=== PATIENT | male | born 1990 | race Caucasian/White ===

== ENCOUNTER 2018-05-21 13:26 | Inpatient (IN) | payer MEDICAID ==
[~2018-05-21] VITALS: Ht 182.9 cm; Wt 97.5 kg
[2018-05-21] MEDS ORDERED: HALOPERIDOL LACTATE 5 MG/ML VIAL IM ONE (14:00)
[2018-05-21] MEDS ORDERED: LORazepam 2 MG/ML VIAL IM ONE (14:00)
[2018-05-21] MEDS ORDERED: DiphenhydrAMINE HCL 50 MG/ML VIAL IM ONE (14:00)
[2018-05-21 15:54] LABS: BASOPHILS % (AUTO) 0.6 % (0.0-2.0); EOSINOPHILS % (AUTO) 0.4 % (1.0-6.0); HEMATOCRIT 44.6 % (41-53); HEMOGLOBIN 15.7 g/dL (13.5-17.5); LYMPHOCYTES # (AUTO) 2.4 K/uL (1.0-4.8); LYMPHOCYTES % (AUTO) 17.6 % (22.0-44.0); MEAN CORPUSCULAR HEMOGLOBIN 31.6 pg (26.0-34.0); MEAN CORPUSCULAR HGB CONC 35.1 G/dL (31.0-37.0); MEAN CORPUSCULAR VOLUME 90 fL (80-100); MONOCYTES # (AUTO) 0.7 K/uL (0.1-1.0); MONOCYTES % (AUTO) 4.9 % (2.0-9.0); NEUTROPHILS # (AUTO) 10.2 K/uL (1.8-7.7); NEUTROPHILS % (AUTO) 76.5 % (40.0-70.0); PLATELET COUNT (AUTO) 313 K/uL (150-450); RED BLOOD CELL COUNT(AUTO) 4.96 MIL/uL (4.50-5.90); RED CELL DISTRIBUTION WIDTH 13.4 % (11.5-14.5)
[2018-05-21 16:05] LABS: ANION GAP 13 mmol/L (8-16); CALCIUM, TOTAL 8.8 mg/dL (8.8-10.5); CARBON DIOXIDE 24 mmol/L (22-29); CHLORIDE 106 mmol/L (98-107); CREATININE 0.89 mg/dL (0.60-1.30); GLOMERULAR FILTR. RATE CALC > 60 mL/min (>60); GLUCOSE,RANDOM 75 mg/dL (70-110); POTASSIUM 3.6 mmol/L (3.5-5.1); SODIUM SERUM 143 mmol/L (136-145); UREA NITROGEN, BLOOD 11 mg/dL (7-18)
[2018-05-21 16:29] LABS: ALANINE AMINOTRANSFERASE 24 U/L (12-78); ALBUMIN 3.8 g/dL (3.4-5.0); ALKALINE PHOSPHATASE 71 U/L (46-116); ASPARTATE AMINOTRANSFERASE 18 U/L (15-37); BILIRUBIN,TOTAL 0.4 mg/dL (0.1-1.0); CREATINE KINASE, TOTAL ONLY 248 U/L (39-308); TOTAL PROTEIN, SERUM 6.9 g/dL (6.4-8.2)
[2018-05-21] MEDS ORDERED: OLANZapine 5 MG TABLET PO ONE (16:30)
[2018-05-21] MEDS ORDERED: ACETAMINOPHEN 325 MG TABLET PO PRN ×2 (16:30→18:30)
[2018-05-21] MEDS ORDERED: IBUPROFEN 400 MG TABLET PO PRN ×2 (16:30→18:30)
[2018-05-21 18:00] VITALS: BP 115/75
[2018-05-21 18:17] VITALS: BP 115/75
[2018-05-21] MEDS ORDERED: MAG HYDROX/AL HYDROX/SIMETH ES 30 ML SUSPENSION UDCUP PO PRN (18:30)
[2018-05-21] MEDS ORDERED: ONDANSETRON HCL 4 MG TABLET PO PRN (18:30)
[2018-05-21] MEDS ORDERED: PETROLATUM,WHITE 71 GM JELLY TP PRN (18:30)
[2018-05-21] MEDS ORDERED: DOCUSATE SODIUM 100 MG CAPSULE PO PRN (18:30)
[2018-05-21] MEDS ORDERED: GuaiFENesin/D-METHORPHAN [SUGAR-FREE] 200-20MG/10 ML SYRUP UDCUP PO PRN (18:30)
[2018-05-21] MEDS ORDERED: MAGNESIUM HYDROXIDE SUSPENSION 30 ML UDCUP PO PRN (18:30)
[2018-05-21] MEDS ORDERED: CloNIDine HCL 0.1 MG TABLET PO PRN (18:30)
[2018-05-21] MEDS ORDERED: ALBUTEROL SULFATE HFA 90 MCG/PUFF 8 GM INHALER IH PRN (18:30)
[2018-05-21] MEDS ORDERED: LOPERAMIDE HCL 2 MG CAPSULE PO PRN (18:30)
[2018-05-22] VITALS (7 sets, daily range): BP systolic 105–125; BP diastolic 65–77
[2018-05-22 08:52] LABS: BASOPHILS % (AUTO) 0.9 % (0.0-2.0); EOSINOPHILS % (AUTO) 1.6 % (1.0-6.0); HEMATOCRIT 48.2 % (41-53); HEMOGLOBIN 16.9 g/dL (13.5-17.5); LYMPHOCYTES # (AUTO) 1.7 K/uL (1.0-4.8); MEAN CORPUSCULAR HEMOGLOBIN 32.2 pg (26.0-34.0); MEAN CORPUSCULAR VOLUME 92 fL (80-100); MONOCYTES # (AUTO) 0.5 K/uL (0.1-1.0); MONOCYTES % (AUTO) 5.5 % (2.0-9.0); NEUTROPHILS # (AUTO) 6.5 K/uL (1.8-7.7); PLATELET COUNT (AUTO) 304 K/uL (150-450); RED BLOOD CELL COUNT(AUTO) 5.25 MIL/uL (4.50-5.90)
[2018-05-22] MEDS: OLANZapine 5 MG TABLET PO SCH ×2 (08:57→16:31)
[2018-05-22] MEDS: BENZTROPINE MESYLATE 0.5 MG TABLET PO SCH ×2 (08:57→16:30)
[2018-05-22 09:26] LABS: HEMOGLOBIN A1C 4.8 % (4.5-6.2)
[2018-05-22 09:42] LABS: ALANINE AMINOTRANSFERASE 22 U/L (12-78); ALBUMIN 3.6 g/dL (3.4-5.0); ALKALINE PHOSPHATASE 66 U/L (46-116); ANION GAP 10 mmol/L (8-16); ASPARTATE AMINOTRANSFERASE 27 U/L (15-37); BILIRUBIN,TOTAL 0.7 mg/dL (0.1-1.0); CALCIUM, TOTAL 9.1 mg/dL (8.8-10.5); CARBON DIOXIDE 26 mmol/L (22-29); CHLORIDE 106 mmol/L (98-107); CHOL/HDL RATIO 1.7 (4.2-7.3); CHOLESTEROL 100 mg/dL (131-200); CREATININE 0.81 mg/dL (0.60-1.30); GLOMERULAR FILTR. RATE CALC > 60 mL/min (>60); GLUCOSE,RANDOM 108 mg/dL (70-110); HDL CHOLESTEROL 58 mg/dL (40-60); LDL CHOL (CALC.) 29 mg/dL (0-130); POTASSIUM 4.2 mmol/L (3.5-5.1); SODIUM SERUM 142 mmol/L (136-145); THYROID STIMULATING HORMONE 0.85 uIU/mL (0.36-3.74); TRIGLYCERIDES 65 mg/dL (15-150); UREA NITROGEN, BLOOD 18 mg/dL (7-18)
[2018-05-22] MEDS: LORazepam 2 MG TABLET PO PRN (16:31)
[2018-05-23 04:12] VITALS: BP 123/80
[2018-05-23] MEDS: LORazepam 2 MG TABLET PO PRN ×4 (04:29→18:58)
[2018-05-23] MEDS: OLANZapine 5 MG RAPDIS TABLET PO PRN ×3 (04:29→14:47)
[2018-05-23 08:00] VITALS: BP 115/65
[2018-05-23 08:11] VITALS: BP 115/65
[2018-05-23] MEDS: OLANZapine 5 MG TABLET PO SCH (08:31)
[2018-05-23] MEDS: BENZTROPINE MESYLATE 0.5 MG TABLET PO SCH ×2 (08:32→16:31)
[2018-05-23 09:15] LABS: ALANINE AMINOTRANSFERASE 24 U/L (12-78); ALBUMIN 3.6 g/dL (3.4-5.0); ALKALINE PHOSPHATASE 68 U/L (46-116); ANION GAP 5 mmol/L (8-16); ASPARTATE AMINOTRANSFERASE 20 U/L (15-37); BILIRUBIN,TOTAL 0.4 mg/dL (0.1-1.0); CALCIUM, TOTAL 8.9 mg/dL (8.8-10.5); CARBON DIOXIDE 32 mmol/L (22-29); CHLORIDE 103 mmol/L (98-107); CHOLESTEROL 106 mg/dL (131-200); CREATININE 0.78 mg/dL (0.60-1.30); GLOMERULAR FILTR. RATE CALC > 60 mL/min (>60); GLUCOSE,RANDOM 92 mg/dL (70-110); HDL CHOLESTEROL 54 mg/dL (40-60); LDL CHOL (CALC.) 38 mg/dL (0-130); POTASSIUM 4.7 mmol/L (3.5-5.1); SODIUM SERUM 140 mmol/L (136-145); THYROID STIMULATING HORMONE 1.09 uIU/mL (0.36-3.74); TOTAL PROTEIN, SERUM 6.6 g/dL (6.4-8.2); TRIGLYCERIDES 72 mg/dL (15-150); UREA NITROGEN, BLOOD 15 mg/dL (7-18)
[2018-05-23] MEDS ORDERED: DiphenhydrAMINE HCL 50 MG/ML VIAL IM ONE (11:00)
[2018-05-23] MEDS ORDERED: LORazepam 2 MG/ML VIAL IM ONE (11:00)
[2018-05-23] MEDS ORDERED: HALOPERIDOL LACTATE 5 MG/ML VIAL IM ONE (11:00)
[2018-05-23] MEDS ORDERED: LORazepam 2 MG/ML VIAL ONE (11:05)
[2018-05-23] MEDS ORDERED: HALOPERIDOL LACTATE 5 MG/ML VIAL ONE (11:05)
[2018-05-23] MEDS ORDERED: DiphenhydrAMINE HCL 50 MG/ML VIAL ONE (11:05)
[2018-05-23 16:27] VITALS: BP 119/74
[2018-05-23] MEDS: OLANZapine 10 MG TABLET PO SCH (16:31)
[2018-05-24 06:40] VITALS: BP 109/63
[2018-05-24] MEDS: BENZTROPINE MESYLATE 0.5 MG TABLET PO SCH (08:25)
[2018-05-24] MEDS: OLANZapine 10 MG TABLET PO SCH (08:25)
[2018-05-24 08:29] VITALS: BP 116/63
[2018-05-24 09:47] VITALS: BP 115/68
[2018-05-24] MEDS: LORazepam 2 MG TABLET PO PRN ×2 (10:39→16:50)
[2018-05-24 16:00] VITALS: BP 137/78
[2018-05-24 16:09] VITALS: BP 137/78
[2018-05-24] MEDS: BENZTROPINE MESYLATE 1 MG TABLET PO SCH (16:50)
[2018-05-24] MEDS: OLANZapine 5 MG RAPDIS TABLET PO PRN (16:50)
[2018-05-24] MEDS: HALOPERIDOL 10 MG TABLET PO SCH (16:50)
[2018-05-24] MEDS: ZOLPIDEM TARTRATE 10 MG TABLET PO PRN (20:25)
[2018-05-25] MEDS: LORazepam 2 MG TABLET PO PRN ×3 (02:39→16:34)
[2018-05-25] MEDS: OLANZapine 5 MG RAPDIS TABLET PO PRN ×3 (02:39→16:35)
[2018-05-25 02:44] VITALS: BP 134/88
[2018-05-25] MEDS: HALOPERIDOL 10 MG TABLET PO SCH ×2 (08:03→16:34)
[2018-05-25] MEDS: BENZTROPINE MESYLATE 1 MG TABLET PO SCH ×2 (08:03→16:34)
[2018-05-25 08:46] VITALS: BP 121/74
[2018-05-25] MEDS: HALOPERIDOL DECANOATE 100 MG/ML VIAL IM SCH (08:56)
[2018-05-25 12:47] VITALS: BP 130/82
[2018-05-25 16:00] VITALS: BP 118/72
[2018-05-25] MEDS: ZOLPIDEM TARTRATE 10 MG TABLET PO PRN (20:17)
[2018-05-26 00:20] VITALS: BP 126/83
[2018-05-26] MEDS: OLANZapine 5 MG RAPDIS TABLET PO PRN ×3 (00:27→13:58)
[2018-05-26] MEDS: LORazepam 2 MG TABLET PO PRN ×4 (00:27→18:18)
[2018-05-26 08:05] VITALS: BP 122/78
[2018-05-26] MEDS: HALOPERIDOL 10 MG TABLET PO SCH ×2 (08:16→16:56)
[2018-05-26] MEDS: BENZTROPINE MESYLATE 1 MG TABLET PO SCH ×2 (08:17→16:56)
[2018-05-26 09:23] LABS: AMPHET/METH SCREEN,URINE NEGATIVE (NEGATIVE); BARBITURATE SCREEN, URINE NEGATIVE (NEGATIVE); BENZODIAZEPINES SCREEN,URINE NEGATIVE (NEGATIVE); CANNABINOID SCREEN,URINE POSITIVE (NEGATIVE); COCAINE SCREEN,URINE NEGATIVE (NEGATIVE); METHADONE SCREEN, URINE NEGATIVE (NEGATIVE); OPIATE SCREEN,URINE NEGATIVE (NEGATIVE)
[2018-05-26 09:25] LABS: PHENCYCLIDINE SCREEN,URINE NEGATIVE (NEGATIVE)
[2018-05-26 09:34] LABS: APPEARANCE,URINE CLEAR (CLEAR); BILIRUBIN,URINE NEGATIVE (NEGATIVE); GLUCOSE, URINE (UA) NEGATIVE (NEGATIVE); KETONES,URINE NEGATIVE (NEGATIVE); LEUKOCYTE ESTERASE ,URINE NEGATIVE (NEGATIVE); NITRATE,URINE NEGATIVE (NEGATIVE); OCCULT BLOOD,URINE NEGATIVE (NEGATIVE); PROTEIN,URINE NEGATIVE (NEGATIVE); UROBILINOGEN,URINE 0.2 mg/dL (<=1.0)
[2018-05-26 12:04] VITALS: BP 122/82
[2018-05-26 16:00] VITALS: BP 120/77
[2018-05-27 02:42] VITALS: BP 120/90
[2018-05-27] MEDS: OLANZapine 5 MG RAPDIS TABLET PO PRN ×3 (02:46→13:21)
[2018-05-27] MEDS: LORazepam 2 MG TABLET PO PRN ×4 (02:46→17:21)
[2018-05-27 08:00] VITALS: BP 137/74
[2018-05-27 08:07] VITALS: BP 134/74
[2018-05-27] MEDS: HALOPERIDOL 10 MG TABLET PO SCH ×2 (08:18→16:12)
[2018-05-27] MEDS: BENZTROPINE MESYLATE 1 MG TABLET PO SCH ×2 (08:18→16:12)
[2018-05-27 16:00] VITALS: BP 120/82
[2018-05-28 01:56] VITALS: BP 125/79
[2018-05-28 01:59] VITALS: BP 125/79
[2018-05-28] MEDS: LORazepam 2 MG TABLET PO PRN ×3 (05:49→16:16)
[2018-05-28] MEDS: HALOPERIDOL 10 MG TABLET PO SCH ×2 (08:08→16:15)
[2018-05-28] MEDS: BENZTROPINE MESYLATE 1 MG TABLET PO SCH ×2 (08:08→16:16)
[2018-05-28 08:24] VITALS: BP 129/82
[2018-05-28 08:30] VITALS: BP 129/82
[2018-05-28] MEDS: OLANZapine 5 MG RAPDIS TABLET PO PRN (09:58)
[2018-05-28 16:00] VITALS: BP 113/68
[2018-05-29 01:00] VITALS: BP 126/71
[2018-05-29] MEDS: LORazepam 2 MG TABLET PO PRN ×3 (01:10→16:06)
[2018-05-29] MEDS: ZOLPIDEM TARTRATE 10 MG TABLET PO PRN (01:10)
[2018-05-29 01:24] VITALS: BP 126/71
[2018-05-29 08:07] VITALS: BP 117/78
[2018-05-29] MEDS: BENZTROPINE MESYLATE 1 MG TABLET PO SCH ×2 (08:18→16:06)
[2018-05-29] MEDS: HALOPERIDOL 10 MG TABLET PO SCH ×2 (08:18→16:06)
[2018-05-29] MEDS: OLANZapine 5 MG RAPDIS TABLET PO PRN ×2 (10:16→16:06)
[2018-05-29] MEDS ORDERED: DiphenhydrAMINE HCL 50 MG/ML VIAL ONE (10:27)
[2018-05-29] MEDS ORDERED: DiphenhydrAMINE HCL 50 MG/ML VIAL IM ONE ×2 (10:30→16:15)
[2018-05-29] MEDS ORDERED: HALOPERIDOL LACTATE 5 MG/ML VIAL IM ONE ×2 (10:30→16:15)
[2018-05-29 11:00] VITALS: BP 134/97
[2018-05-29] MEDS: NICOTINE 14 MG/24 HOUR PATCH TD SCH (11:05)
[2018-05-29 16:00] VITALS: BP 132/87
[2018-05-30 02:08] VITALS: BP 128/86
[2018-05-30 02:47] VITALS: BP 128/86
[2018-05-30 08:30] VITALS: BP 124/78
[2018-05-30] MEDS: DIVALPROEX SODIUM 500 MG ER TABLET PO SCH ×2 (08:44→16:42)
[2018-05-30] MEDS: HALOPERIDOL 10 MG TABLET PO SCH ×2 (08:44→16:42)
[2018-05-30] MEDS: BENZTROPINE MESYLATE 1 MG TABLET PO SCH ×2 (08:44→16:42)
[2018-05-30] MEDS: LORazepam 2 MG TABLET PO PRN ×3 (08:44→20:42)
[2018-05-30] MEDS: NICOTINE 14 MG/24 HOUR PATCH TD SCH (08:45)
[2018-05-30 09:13] VITALS: BP 124/78
[2018-05-30] MEDS: OLANZapine 5 MG RAPDIS TABLET PO PRN ×2 (14:23→20:42)
[2018-05-30 16:00] VITALS: BP 110/63
[2018-05-30] MEDS: ZOLPIDEM TARTRATE 10 MG TABLET PO PRN (20:41)
[2018-05-31 00:33] VITALS: BP 114/66
[2018-05-31 00:35] VITALS: BP 114/66
[2018-05-31 08:03] VITALS: BP 120/78
[2018-05-31 08:17] VITALS: BP 120/78
[2018-05-31] MEDS: BENZTROPINE MESYLATE 1 MG TABLET PO SCH ×2 (09:05→17:01)
[2018-05-31] MEDS: OLANZapine 5 MG RAPDIS TABLET PO PRN ×2 (09:05→13:12)
[2018-05-31] MEDS: NICOTINE 14 MG/24 HOUR PATCH TD SCH (09:05)
[2018-05-31] MEDS: DIVALPROEX SODIUM 500 MG ER TABLET PO SCH ×2 (09:05→17:01)
[2018-05-31] MEDS: HALOPERIDOL 10 MG TABLET PO SCH ×2 (09:05→17:00)
[2018-05-31] MEDS: LORazepam 2 MG TABLET PO PRN ×3 (09:05→17:18)
[2018-05-31 16:55] VITALS: BP 104/67
[2018-05-31 16:57] VITALS: BP 104/67
[2018-06-01] VITALS (7 sets, daily range): BP systolic 117–125; BP diastolic 67–74
[2018-06-01] MEDS: HALOPERIDOL 10 MG TABLET PO SCH ×2 (08:38→16:47)
[2018-06-01] MEDS: BENZTROPINE MESYLATE 1 MG TABLET PO SCH ×2 (08:38→16:47)
[2018-06-01] MEDS: DIVALPROEX SODIUM 500 MG ER TABLET PO SCH ×2 (08:38→16:47)
[2018-06-01] MEDS: NICOTINE 14 MG/24 HOUR PATCH TD SCH (08:39)
[2018-06-01] MEDS: LORazepam 2 MG TABLET PO PRN ×2 (08:39→16:47)
[2018-06-01] MEDS: OLANZapine 5 MG RAPDIS TABLET PO PRN ×2 (08:39→16:47)
[2018-06-01 09:01] LABS: BASOPHILS % (AUTO) 1.2 % (0.0-2.0); EOSINOPHILS % (AUTO) 1.8 % (1.0-6.0); HEMATOCRIT 46.9 % (41-53); HEMOGLOBIN 16.4 g/dL (13.5-17.5); LYMPHOCYTES # (AUTO) 2.5 K/uL (1.0-4.8); LYMPHOCYTES % (AUTO) 32.5 % (22.0-44.0); MEAN CORPUSCULAR HEMOGLOBIN 31.4 pg (26.0-34.0); MEAN CORPUSCULAR HGB CONC 34.9 G/dL (31.0-37.0); MEAN CORPUSCULAR VOLUME 90 fL (80-100); MONOCYTES # (AUTO) 0.3 K/uL (0.1-1.0); MONOCYTES % (AUTO) 4.5 % (2.0-9.0); NEUTROPHILS # (AUTO) 4.5 K/uL (1.8-7.7); PLATELET COUNT (AUTO) 337 K/uL (150-450); RED CELL DISTRIBUTION WIDTH 13.5 % (11.5-14.5)
[2018-06-01 09:19] LABS: ALANINE AMINOTRANSFERASE 24 U/L (12-78); ALBUMIN 3.6 g/dL (3.4-5.0); ALKALINE PHOSPHATASE 66 U/L (46-116); ANION GAP 8 mmol/L (8-16); ASPARTATE AMINOTRANSFERASE 14 U/L (15-37); BILIRUBIN,TOTAL 0.3 mg/dL (0.1-1.0); CARBON DIOXIDE 28 mmol/L (22-29); CHLORIDE 103 mmol/L (98-107); GLOMERULAR FILTR. RATE CALC > 60 mL/min (>60); GLUCOSE,RANDOM 118 mg/dL (70-110); POTASSIUM 3.8 mmol/L (3.5-5.1); SODIUM SERUM 139 mmol/L (136-145); TOTAL PROTEIN, SERUM 7.1 g/dL (6.4-8.2); UREA NITROGEN, BLOOD 16 mg/dL (7-18); VALPROIC ACID 41 mcg/mL (50-100)
[2018-06-01] MEDS ORDERED: LORazepam 2 MG/ML VIAL IM ONE (11:15)
[2018-06-01] MEDS ORDERED: DiphenhydrAMINE HCL 50 MG/ML VIAL IM ONE (11:15)
[2018-06-01] MEDS ORDERED: HALOPERIDOL LACTATE 5 MG/ML VIAL IM ONE (11:15)
[2018-06-02 01:22] VITALS: BP 124/72
[2018-06-02 01:23] VITALS: BP 124/72
[2018-06-02] MEDS: HALOPERIDOL 10 MG TABLET PO SCH ×2 (08:09→16:22)
[2018-06-02] MEDS: DIVALPROEX SODIUM 500 MG ER TABLET PO SCH ×2 (08:09→16:22)
[2018-06-02] MEDS: BENZTROPINE MESYLATE 1 MG TABLET PO SCH ×2 (08:09→16:22)
[2018-06-02] MEDS: LORazepam 2 MG TABLET PO PRN ×3 (08:12→21:08)
[2018-06-02] MEDS: NICOTINE 14 MG/24 HOUR PATCH TD SCH (08:12)
[2018-06-02] MEDS: OLANZapine 5 MG RAPDIS TABLET PO PRN (08:13)
[2018-06-02 08:30] VITALS: BP 114/66
[2018-06-02 09:26] VITALS: BP 116/68
[2018-06-02] MEDS ORDERED: DiphenhydrAMINE HCL 50 MG/ML VIAL ONE (13:33)
[2018-06-02] MEDS ORDERED: LORazepam 2 MG/ML VIAL ONE (13:33)
[2018-06-02] MEDS ORDERED: HALOPERIDOL LACTATE 5 MG/ML VIAL ONE (13:33)
[2018-06-02] MEDS ORDERED: DiphenhydrAMINE HCL 50 MG/ML VIAL IM ONE (14:15)
[2018-06-02] MEDS ORDERED: HALOPERIDOL LACTATE 5 MG/ML VIAL IM ONE (14:15)
[2018-06-02] MEDS ORDERED: LORazepam 2 MG/ML VIAL IM ONE (14:15)
[2018-06-02 16:00] VITALS: BP 136/72
[2018-06-03 03:57] VITALS: BP 124/76
[2018-06-03 08:09] VITALS: BP 127/75
[2018-06-03] MEDS: HALOPERIDOL 10 MG TABLET PO SCH ×2 (08:33→16:32)
[2018-06-03] MEDS: DIVALPROEX SODIUM 500 MG ER TABLET PO SCH ×2 (08:33→16:32)
[2018-06-03] MEDS: BENZTROPINE MESYLATE 1 MG TABLET PO SCH ×2 (08:33→16:32)
[2018-06-03] MEDS: LORazepam 2 MG TABLET PO PRN ×3 (08:34→20:15)
[2018-06-03] MEDS: OLANZapine 5 MG RAPDIS TABLET PO PRN ×3 (08:34→20:15)
[2018-06-03] MEDS: NICOTINE 14 MG/24 HOUR PATCH TD SCH (08:35)
[2018-06-03] MEDS ORDERED: DiphenhydrAMINE HCL 50 MG/ML VIAL ONE (14:19)
[2018-06-03] MEDS ORDERED: HALOPERIDOL LACTATE 5 MG/ML VIAL ONE (14:19)
[2018-06-03] MEDS ORDERED: LORazepam 2 MG/ML VIAL ONE (14:19)
[2018-06-03] MEDS ORDERED: HALOPERIDOL LACTATE 5 MG/ML VIAL IM ONE (14:45)
[2018-06-03] MEDS ORDERED: LORazepam 2 MG/ML VIAL IM ONE (14:45)
[2018-06-03] MEDS ORDERED: DiphenhydrAMINE HCL 50 MG/ML VIAL IM ONE (14:45)
[2018-06-03 16:21] VITALS: BP 127/82
[2018-06-03] MEDS: ZOLPIDEM TARTRATE 10 MG TABLET PO PRN (20:15)
[2018-06-04 05:20] VITALS: BP 121/72
[2018-06-04] MEDS: LORazepam 2 MG TABLET PO PRN ×3 (06:44→17:00)
[2018-06-04 08:05] VITALS: BP 116/76
[2018-06-04] MEDS: HALOPERIDOL 10 MG TABLET PO SCH ×2 (08:33→17:00)
[2018-06-04] MEDS: NICOTINE 14 MG/24 HOUR PATCH TD SCH (08:33)
[2018-06-04] MEDS: BENZTROPINE MESYLATE 1 MG TABLET PO SCH ×2 (08:33→17:00)
[2018-06-04] MEDS: OLANZapine 5 MG RAPDIS TABLET PO PRN ×3 (08:33→17:00)
[2018-06-04] MEDS: DIVALPROEX SODIUM 500 MG ER TABLET PO SCH ×2 (08:33→17:00)
[2018-06-04 16:00] VITALS: BP 116/73
[2018-06-05 03:20] VITALS: BP 112/65
[2018-06-05 08:05] VITALS: BP 122/78
[2018-06-05] MEDS: HALOPERIDOL 10 MG TABLET PO SCH ×2 (08:28→16:13)
[2018-06-05] MEDS: DIVALPROEX SODIUM 500 MG ER TABLET PO SCH ×2 (08:28→16:13)
[2018-06-05] MEDS: BENZTROPINE MESYLATE 1 MG TABLET PO SCH ×2 (08:28→16:13)
[2018-06-05] MEDS: NICOTINE 14 MG/24 HOUR PATCH TD SCH (09:00)
[2018-06-05] MEDS: OLANZapine 5 MG RAPDIS TABLET PO PRN ×2 (15:11→19:50)
[2018-06-05] MEDS: LORazepam 2 MG TABLET PO PRN ×2 (15:11→19:50)
[2018-06-05 16:04] VITALS: BP 118/90
[2018-06-06 02:18] VITALS: BP 109/77
[2018-06-06 08:04] VITALS: BP 117/68
[2018-06-06] MEDS: HALOPERIDOL 10 MG TABLET PO SCH ×2 (08:40→17:09)
[2018-06-06] MEDS: DIVALPROEX SODIUM 500 MG ER TABLET PO SCH ×2 (08:40→17:09)
[2018-06-06] MEDS: LORazepam 2 MG TABLET PO PRN ×3 (08:40→17:09)
[2018-06-06] MEDS: BENZTROPINE MESYLATE 1 MG TABLET PO SCH ×2 (08:40→17:09)
[2018-06-06] MEDS: OLANZapine 5 MG RAPDIS TABLET PO PRN ×3 (08:40→17:09)
[2018-06-06] MEDS: NICOTINE 14 MG/24 HOUR PATCH TD SCH (08:40)
[2018-06-06 16:22] VITALS: BP 112/72
[2018-06-07 02:12] VITALS: BP 110/62
[2018-06-07 08:00] VITALS: BP 122/64
[2018-06-07] MEDS: HALOPERIDOL 10 MG TABLET PO SCH ×2 (08:19→16:38)
[2018-06-07] MEDS: OLANZapine 5 MG RAPDIS TABLET PO PRN ×3 (08:19→16:38)
[2018-06-07] MEDS: NICOTINE 14 MG/24 HOUR PATCH TD SCH (08:19)
[2018-06-07] MEDS: DIVALPROEX SODIUM 500 MG ER TABLET PO SCH ×2 (08:19→16:38)
[2018-06-07] MEDS: LORazepam 2 MG TABLET PO PRN ×3 (08:19→16:38)
[2018-06-07] MEDS: BENZTROPINE MESYLATE 1 MG TABLET PO SCH ×2 (08:19→16:38)
[2018-06-07 16:00] VITALS: BP 113/82
[2018-06-08 05:48] VITALS: BP 115/78
[2018-06-08 08:14] VITALS: BP 113/56
[2018-06-08] MEDS: LORazepam 2 MG TABLET PO PRN ×3 (08:18→16:41)
[2018-06-08] MEDS: OLANZapine 5 MG RAPDIS TABLET PO PRN ×3 (08:18→16:41)
[2018-06-08] MEDS: BENZTROPINE MESYLATE 1 MG TABLET PO SCH ×2 (08:18→16:41)
[2018-06-08] MEDS: DIVALPROEX SODIUM 500 MG ER TABLET PO SCH ×2 (08:18→16:41)
[2018-06-08] MEDS: NICOTINE 14 MG/24 HOUR PATCH TD SCH (08:19)
[2018-06-08] MEDS: HALOPERIDOL 10 MG TABLET PO SCH ×2 (08:19→16:41)
[2018-06-08 17:06] VITALS: BP 132/70
[2018-06-09 02:40] VITALS: BP 127/82
[2018-06-09 08:05] VITALS: BP 117/67
[2018-06-09] MEDS: DIVALPROEX SODIUM 500 MG ER TABLET PO SCH ×2 (08:14→16:20)
[2018-06-09] MEDS: HALOPERIDOL 10 MG TABLET PO SCH ×2 (08:14→16:20)
[2018-06-09] MEDS: BENZTROPINE MESYLATE 1 MG TABLET PO SCH ×2 (08:14→16:20)
[2018-06-09] MEDS: NICOTINE 14 MG/24 HOUR PATCH TD SCH (08:15)
[2018-06-09] MEDS: LORazepam 2 MG TABLET PO PRN ×3 (08:15→16:20)
[2018-06-09] MEDS: OLANZapine 5 MG RAPDIS TABLET PO PRN ×3 (08:15→16:21)
[2018-06-09 16:00] VITALS: BP 130/79
[2018-06-10 04:51] VITALS: BP 121/81
[2018-06-10 08:06] VITALS: BP 110/66
[2018-06-10] MEDS: OLANZapine 5 MG RAPDIS TABLET PO PRN (09:12)
[2018-06-10] MEDS: NICOTINE 14 MG/24 HOUR PATCH TD SCH (09:13)
[2018-06-10] MEDS: BENZTROPINE MESYLATE 1 MG TABLET PO SCH ×2 (09:13→16:08)
[2018-06-10] MEDS: HALOPERIDOL 10 MG TABLET PO SCH ×2 (09:13→16:08)
[2018-06-10] MEDS: LORazepam 2 MG TABLET PO PRN ×2 (09:13→16:08)
[2018-06-10] MEDS: DIVALPROEX SODIUM 500 MG ER TABLET PO SCH ×2 (09:13→16:08)
[2018-06-10] MEDS ORDERED: TUBERCULIN, PURIFIED PROTEIN DERIVATIVE 5 TU/0.1 ML SYG ID ONE (15:30)
[2018-06-10 16:07] VITALS: BP 115/63
[2018-06-11] MEDS: LORazepam 2 MG TABLET PO PRN ×4 (01:25→16:44)
[2018-06-11] MEDS: ZOLPIDEM TARTRATE 10 MG TABLET PO PRN (01:25)
[2018-06-11 03:19] VITALS: BP 117/78
[2018-06-11 08:05] VITALS: BP 116/68
[2018-06-11] MEDS: DIVALPROEX SODIUM 500 MG ER TABLET PO SCH ×2 (08:27→16:44)
[2018-06-11] MEDS: NICOTINE 14 MG/24 HOUR PATCH TD SCH (08:27)
[2018-06-11] MEDS: HALOPERIDOL 10 MG TABLET PO SCH ×2 (08:27→16:44)
[2018-06-11] MEDS: OLANZapine 5 MG RAPDIS TABLET PO PRN ×3 (08:27→16:44)
[2018-06-11] MEDS: BENZTROPINE MESYLATE 1 MG TABLET PO SCH ×2 (08:27→16:44)
[2018-06-11 16:00] VITALS: BP 123/67
[2018-06-12 01:42] VITALS: BP 125/85
[2018-06-12] MEDS: ZOLPIDEM TARTRATE 10 MG TABLET PO PRN (03:32)
[2018-06-12 08:46] VITALS: BP 122/78
[2018-06-12] MEDS: HALOPERIDOL 10 MG TABLET PO SCH ×2 (08:51→17:06)
[2018-06-12] MEDS: NICOTINE 14 MG/24 HOUR PATCH TD SCH (08:52)
[2018-06-12] MEDS: LORazepam 2 MG TABLET PO PRN ×3 (08:52→17:06)
[2018-06-12] MEDS: OLANZapine 5 MG RAPDIS TABLET PO PRN ×2 (08:52→13:07)
[2018-06-12] MEDS: BENZTROPINE MESYLATE 1 MG TABLET PO SCH ×2 (08:52→17:06)
[2018-06-12] MEDS: DIVALPROEX SODIUM 500 MG ER TABLET PO SCH ×2 (08:52→17:06)
[2018-06-12 16:20] VITALS: BP 118/70
[2018-06-13 05:10] VITALS: BP 110/72
[2018-06-13 08:08] VITALS: BP 118/74
[2018-06-13] MEDS: HALOPERIDOL 10 MG TABLET PO SCH ×2 (08:51→16:07)
[2018-06-13] MEDS: DIVALPROEX SODIUM 500 MG ER TABLET PO SCH ×2 (08:51→16:07)
[2018-06-13] MEDS: LORazepam 2 MG TABLET PO PRN ×2 (08:52→14:24)
[2018-06-13] MEDS: BENZTROPINE MESYLATE 1 MG TABLET PO SCH ×2 (08:52→16:07)
[2018-06-13] MEDS: NICOTINE 14 MG/24 HOUR PATCH TD SCH (08:53)
[2018-06-13 16:00] VITALS: BP 121/80
[2018-06-13] MEDS: OLANZapine 5 MG RAPDIS TABLET PO PRN (19:52)
[2018-06-14 03:32] VITALS: BP 137/79
[2018-06-14] MEDS: LORazepam 2 MG TABLET PO PRN ×4 (04:28→17:03)
[2018-06-14] MEDS: OLANZapine 5 MG RAPDIS TABLET PO PRN ×2 (04:28→13:15)
[2018-06-14] MEDS: BENZTROPINE MESYLATE 1 MG TABLET PO SCH ×2 (08:50→17:03)
[2018-06-14] MEDS: DIVALPROEX SODIUM 500 MG ER TABLET PO SCH ×2 (08:50→17:03)
[2018-06-14] MEDS: HALOPERIDOL 10 MG TABLET PO SCH ×2 (08:50→17:03)
[2018-06-14] MEDS: NICOTINE 14 MG/24 HOUR PATCH TD SCH (08:51)
[2018-06-14 08:55] VITALS: BP 114/64
[2018-06-14 16:00] VITALS: BP 136/87
[2018-06-15 00:54] VITALS: BP 111/71
[2018-06-15 08:27] VITALS: BP 120/68
[2018-06-15] MEDS: NICOTINE 14 MG/24 HOUR PATCH TD SCH (09:00)
[2018-06-15] MEDS: HALOPERIDOL 10 MG TABLET PO SCH ×2 (09:56→16:46)
[2018-06-15] MEDS: DIVALPROEX SODIUM 500 MG ER TABLET PO SCH ×2 (09:56→16:46)
[2018-06-15] MEDS: BENZTROPINE MESYLATE 1 MG TABLET PO SCH ×2 (09:56→16:46)
[2018-06-15] MEDS: LORazepam 2 MG TABLET PO PRN ×2 (09:57→16:46)
[2018-06-15 17:31] VITALS: BP 123/75
[2018-06-16 05:26] VITALS: BP 128/72
[2018-06-16 08:09] VITALS: BP 116/68
[2018-06-16] MEDS: DIVALPROEX SODIUM 500 MG ER TABLET PO SCH ×2 (08:54→16:05)
[2018-06-16] MEDS: HALOPERIDOL 10 MG TABLET PO SCH ×2 (08:54→16:05)
[2018-06-16] MEDS: BENZTROPINE MESYLATE 1 MG TABLET PO SCH ×2 (08:54→16:05)
[2018-06-16] MEDS: NICOTINE 14 MG/24 HOUR PATCH TD SCH (08:55)
[2018-06-16] MEDS: LORazepam 2 MG TABLET PO PRN (08:55)
[2018-06-16] MEDS: OLANZapine 5 MG RAPDIS TABLET PO PRN ×2 (08:55→17:10)
[2018-06-16 16:00] VITALS: BP 124/70
[2018-06-17 01:00] VITALS: BP 128/78
[2018-06-17] MEDS: ZOLPIDEM TARTRATE 10 MG TABLET PO PRN ×2 (01:05→20:49)
[2018-06-17 08:09] VITALS: BP 113/63
[2018-06-17] MEDS: NICOTINE 14 MG/24 HOUR PATCH TD SCH (09:15)
[2018-06-17] MEDS: DIVALPROEX SODIUM 500 MG ER TABLET PO SCH ×2 (09:15→16:32)
[2018-06-17] MEDS: HALOPERIDOL 10 MG TABLET PO SCH ×2 (09:15→16:33)
[2018-06-17] MEDS: BENZTROPINE MESYLATE 1 MG TABLET PO SCH ×2 (09:15→16:32)
[2018-06-17] MEDS: OLANZapine 5 MG RAPDIS TABLET PO PRN ×2 (09:16→16:33)
[2018-06-17 16:08] VITALS: BP 121/84
[2018-06-18 03:17] VITALS: BP 114/74
[2018-06-18] MEDS: OLANZapine 5 MG RAPDIS TABLET PO PRN ×2 (06:01→15:29)
[2018-06-18 08:31] VITALS: BP 138/82
[2018-06-18] MEDS: DIVALPROEX SODIUM 500 MG ER TABLET PO SCH ×2 (08:51→17:03)
[2018-06-18] MEDS: HALOPERIDOL 10 MG TABLET PO SCH ×2 (08:51→17:03)
[2018-06-18] MEDS: NICOTINE 14 MG/24 HOUR PATCH TD SCH (08:52)
[2018-06-18] MEDS: BENZTROPINE MESYLATE 1 MG TABLET PO SCH ×2 (08:52→17:03)
[2018-06-18 16:13] VITALS: BP 121/70
[2018-06-18] MEDS: ZOLPIDEM TARTRATE 10 MG TABLET PO PRN (20:05)
[2018-06-19 05:54] VITALS: BP 122/79
[2018-06-19] MEDS: OLANZapine 5 MG RAPDIS TABLET PO PRN ×2 (07:07→16:56)
[2018-06-19 08:21] VITALS: BP 126/78
[2018-06-19] MEDS ORDERED: MULT-1239 PO (08:38)
[2018-06-19] MEDS ORDERED: HALO100V4 IM (08:38)
[2018-06-19] MEDS ORDERED: NICO-703 TD (08:38)
[2018-06-19] MEDS ORDERED: BENZ1TAB10 PO (08:38)
[2018-06-19] MEDS ORDERED: DIVA500T52 PO (08:38)
[2018-06-19] MEDS ORDERED: HALO10 PO (08:38)
[2018-06-19] MEDS: MULTIVITAMINS, THERAPEUTIC TABLET PO SCH (08:44)
[2018-06-19] MEDS: DIVALPROEX SODIUM 500 MG ER TABLET PO SCH ×2 (08:44→16:56)
[2018-06-19] MEDS: HALOPERIDOL 10 MG TABLET PO SCH ×2 (08:44→16:55)
[2018-06-19] MEDS: BENZTROPINE MESYLATE 1 MG TABLET PO SCH ×2 (08:44→16:56)
[2018-06-19] MEDS: NICOTINE 14 MG/24 HOUR PATCH TD SCH (08:45)
[2018-06-19 16:20] VITALS: BP 127/74
[2018-06-19] MEDS: ZOLPIDEM TARTRATE 10 MG TABLET PO PRN (20:50)
[2018-06-20 04:14] VITALS: BP 117/80
[2018-06-20 08:08] VITALS: BP 125/80
[2018-06-20] MEDS: MULTIVITAMINS, THERAPEUTIC TABLET PO SCH (08:35)
[2018-06-20] MEDS: HALOPERIDOL 10 MG TABLET PO SCH ×2 (08:35→17:02)
[2018-06-20] MEDS: BENZTROPINE MESYLATE 1 MG TABLET PO SCH ×2 (08:35→17:01)
[2018-06-20] MEDS: DIVALPROEX SODIUM 500 MG ER TABLET PO SCH ×2 (08:35→17:01)
[2018-06-20] MEDS: NICOTINE 14 MG/24 HOUR PATCH TD SCH (08:38)
[2018-06-20] MEDS: OLANZapine 5 MG RAPDIS TABLET PO PRN ×2 (08:40→17:03)
[2018-06-20 16:08] VITALS: BP 129/79
[2018-06-21 05:03] VITALS: BP 123/75
[2018-06-21 08:17] VITALS: BP 134/76
[2018-06-21] MEDS: MULTIVITAMINS, THERAPEUTIC TABLET PO SCH (08:47)
[2018-06-21] MEDS: HALOPERIDOL 10 MG TABLET PO SCH ×2 (08:47→16:44)
[2018-06-21] MEDS: BENZTROPINE MESYLATE 1 MG TABLET PO SCH ×2 (08:47→16:44)
[2018-06-21] MEDS: DIVALPROEX SODIUM 500 MG ER TABLET PO SCH ×2 (08:48→16:44)
[2018-06-21] MEDS: NICOTINE 14 MG/24 HOUR PATCH TD SCH (09:38)
[2018-06-21 16:27] VITALS: BP 116/73
[2018-06-21] MEDS: OLANZapine 5 MG RAPDIS TABLET PO PRN (16:44)
[2018-06-21] MEDS: ZOLPIDEM TARTRATE 10 MG TABLET PO PRN (20:25)
[2018-06-22 06:28] VITALS: BP 119/79
[2018-06-22 08:09] VITALS: BP 120/76
[2018-06-22] MEDS: OLANZapine 5 MG RAPDIS TABLET PO PRN ×2 (09:21→17:27)
[2018-06-22] MEDS: NICOTINE 14 MG/24 HOUR PATCH TD SCH (09:21)
[2018-06-22] MEDS: BENZTROPINE MESYLATE 1 MG TABLET PO SCH ×2 (09:21→17:27)
[2018-06-22] MEDS: DIVALPROEX SODIUM 500 MG ER TABLET PO SCH ×2 (09:21→17:27)
[2018-06-22] MEDS: MULTIVITAMINS, THERAPEUTIC TABLET PO SCH (09:21)
[2018-06-22] MEDS: HALOPERIDOL 10 MG TABLET PO SCH ×2 (09:21→17:27)
[2018-06-22 16:09] VITALS: BP 118/74
[2018-06-22] MEDS: ZOLPIDEM TARTRATE 10 MG TABLET PO PRN (20:54)
[2018-06-23 06:28] VITALS: BP 113/66
[2018-06-23 08:16] VITALS: BP 120/72
[2018-06-23] MEDS: NICOTINE 14 MG/24 HOUR PATCH TD SCH (08:54)
[2018-06-23] MEDS: MULTIVITAMINS, THERAPEUTIC TABLET PO SCH (08:55)
[2018-06-23] MEDS: OLANZapine 5 MG RAPDIS TABLET PO PRN ×2 (08:55→16:14)
[2018-06-23] MEDS: HALOPERIDOL 10 MG TABLET PO SCH ×2 (08:55→16:14)
[2018-06-23] MEDS: BENZTROPINE MESYLATE 1 MG TABLET PO SCH ×2 (08:55→16:14)
[2018-06-23] MEDS: DIVALPROEX SODIUM 500 MG ER TABLET PO SCH (08:55)
[2018-06-23] MEDS: DIVALPROEX SODIUM 250 MG ER TABLET PO SCH (16:14)
[2018-06-23 16:28] VITALS: BP 126/78
[2018-06-23] MEDS ORDERED: DiphenhydrAMINE HCL 50 MG/ML VIAL IM ONE (18:00)
[2018-06-23] MEDS ORDERED: HALOPERIDOL LACTATE 5 MG/ML VIAL IM ONE (18:00)
[2018-06-23] MEDS ORDERED: LORazepam 2 MG/ML VIAL IM ONE (18:00)
[2018-06-24] VITALS (8 sets, daily range): BP systolic 108–124; BP diastolic 62–76
[2018-06-24] MEDS: NICOTINE 14 MG/24 HOUR PATCH TD SCH (08:50)
[2018-06-24] MEDS: MULTIVITAMINS, THERAPEUTIC TABLET PO SCH (08:50)
[2018-06-24] MEDS: DIVALPROEX SODIUM 250 MG ER TABLET PO SCH ×2 (08:50→16:29)
[2018-06-24] MEDS: BENZTROPINE MESYLATE 1 MG TABLET PO SCH ×2 (08:50→16:29)
[2018-06-24] MEDS: HALOPERIDOL 10 MG TABLET PO SCH ×2 (08:50→16:29)
[2018-06-24] MEDS: OLANZapine 5 MG RAPDIS TABLET PO PRN ×2 (08:51→16:29)
[2018-06-24] MEDS: HALOPERIDOL DECANOATE 100 MG/ML VIAL IM SCH (09:13)
[2018-06-24] MEDS ORDERED: DiphenhydrAMINE HCL 50 MG/ML VIAL ONE (18:39)
[2018-06-24] MEDS ORDERED: HALOPERIDOL LACTATE 5 MG/ML VIAL ONE (18:39)
[2018-06-24] MEDS ORDERED: LORazepam 2 MG/ML VIAL ONE (18:39)
[2018-06-24] MEDS ORDERED: LORazepam 2 MG/ML VIAL IM ONE (18:40)
[2018-06-24] MEDS ORDERED: DiphenhydrAMINE HCL 50 MG/ML VIAL IM ONE (18:40)
[2018-06-24] MEDS ORDERED: HALOPERIDOL LACTATE 5 MG/ML VIAL IM ONE (18:40)
[2018-06-25] VITALS (7 sets, daily range): BP systolic 109–139; BP diastolic 58–80
[2018-06-25] MEDS: NICOTINE 14 MG/24 HOUR PATCH TD SCH (09:00)
[2018-06-25] MEDS: OLANZapine 5 MG RAPDIS TABLET PO PRN ×2 (09:01→16:24)
[2018-06-25] MEDS: DIVALPROEX SODIUM 250 MG ER TABLET PO SCH ×2 (09:01→16:24)
[2018-06-25] MEDS: HALOPERIDOL 10 MG TABLET PO SCH ×2 (09:01→16:24)
[2018-06-25] MEDS: BENZTROPINE MESYLATE 1 MG TABLET PO SCH ×2 (09:01→16:24)
[2018-06-25] MEDS: MULTIVITAMINS, THERAPEUTIC TABLET PO SCH (09:06)
[2018-06-25] MEDS ORDERED: HALOPERIDOL LACTATE 5 MG/ML VIAL ONE (12:00)
[2018-06-25] MEDS ORDERED: LORazepam 2 MG/ML VIAL ONE (12:00)
[2018-06-25] MEDS ORDERED: DiphenhydrAMINE HCL 50 MG/ML VIAL ONE (12:00)
[2018-06-25] MEDS ORDERED: HALOPERIDOL LACTATE 5 MG/ML VIAL IM ONE (12:15)
[2018-06-25] MEDS ORDERED: LORazepam 2 MG/ML VIAL IM ONE (12:15)
[2018-06-25] MEDS ORDERED: DiphenhydrAMINE HCL 50 MG/ML VIAL IM ONE (12:15)
[2018-06-26 06:39] VITALS: BP 116/72
[2018-06-26 08:12] VITALS: BP 123/62
[2018-06-26] MEDS: BENZTROPINE MESYLATE 1 MG TABLET PO SCH ×2 (08:27→16:43)
[2018-06-26] MEDS: DIVALPROEX SODIUM 250 MG ER TABLET PO SCH ×2 (08:27→16:43)
[2018-06-26] MEDS: HALOPERIDOL 10 MG TABLET PO SCH ×2 (08:27→16:43)
[2018-06-26] MEDS: MULTIVITAMINS, THERAPEUTIC TABLET PO SCH (08:27)
[2018-06-26] MEDS: NICOTINE 14 MG/24 HOUR PATCH TD SCH (09:00)
[2018-06-26] MEDS: OLANZapine 5 MG RAPDIS TABLET PO PRN ×2 (09:53→16:43)
[2018-06-26] MEDS ORDERED: HALOPERIDOL LACTATE 5 MG/ML VIAL IM ONE (10:30)
[2018-06-26] MEDS ORDERED: DiphenhydrAMINE HCL 50 MG/ML VIAL IM ONE (10:30)
[2018-06-26] MEDS ORDERED: LORazepam 2 MG/ML VIAL IM ONE (10:30)
[2018-06-26 11:00] VITALS: BP 135/75
[2018-06-26] MEDS ORDERED: HYDROCODONE/ACETAMINOPHEN 5-325 MG TABLET PO ONE (11:00)
[2018-06-26 16:00] VITALS: BP 116/67
[2018-06-26] MEDS: ZOLPIDEM TARTRATE 10 MG TABLET PO PRN (20:08)
[2018-06-27] MEDS: OLANZapine 5 MG RAPDIS TABLET PO PRN ×3 (04:25→16:47)
[2018-06-27 06:16] VITALS: BP 122/72
[2018-06-27 08:08] VITALS: BP 104/61
[2018-06-27] MEDS: DIVALPROEX SODIUM 500 MG ER TABLET PO SCH ×2 (08:25→16:47)
[2018-06-27] MEDS: MULTIVITAMINS, THERAPEUTIC TABLET PO SCH (08:25)
[2018-06-27] MEDS: HALOPERIDOL 10 MG TABLET PO SCH ×2 (08:25→16:47)
[2018-06-27] MEDS: BENZTROPINE MESYLATE 1 MG TABLET PO SCH ×2 (08:25→16:47)
[2018-06-27] MEDS: NICOTINE 14 MG/24 HOUR PATCH TD SCH (08:40)
[2018-06-27 16:00] VITALS: BP 137/89
[2018-06-27] MEDS: ZOLPIDEM TARTRATE 10 MG TABLET PO PRN (20:51)
[2018-06-28 06:30] VITALS: BP 106/65
[2018-06-28 08:07] VITALS: BP 117/78
[2018-06-28] MEDS: MULTIVITAMINS, THERAPEUTIC TABLET PO SCH (08:25)
[2018-06-28] MEDS: HALOPERIDOL 10 MG TABLET PO SCH ×2 (08:25→16:05)
[2018-06-28] MEDS: DIVALPROEX SODIUM 500 MG ER TABLET PO SCH ×2 (08:25→16:05)
[2018-06-28] MEDS: BENZTROPINE MESYLATE 1 MG TABLET PO SCH ×2 (08:25→16:05)
[2018-06-28] MEDS: NICOTINE 14 MG/24 HOUR PATCH TD SCH (09:00)
[2018-06-28] MEDS: OLANZapine 5 MG RAPDIS TABLET PO PRN ×2 (10:09→16:55)
[2018-06-28] MEDS ORDERED: LORazepam 2 MG/ML VIAL ONE (13:50)
[2018-06-28] MEDS ORDERED: DiphenhydrAMINE HCL 50 MG/ML VIAL ONE (13:50)
[2018-06-28] MEDS ORDERED: HALOPERIDOL LACTATE 5 MG/ML VIAL ONE (13:51)
[2018-06-28] MEDS ORDERED: LORazepam 2 MG/ML VIAL IM ONE (14:00)
[2018-06-28] MEDS ORDERED: DiphenhydrAMINE HCL 50 MG/ML VIAL IM ONE (14:00)
[2018-06-28] MEDS ORDERED: HALOPERIDOL LACTATE 5 MG/ML VIAL IM ONE (14:00)
[2018-06-28 14:42] VITALS: BP 136/87
[2018-06-28 16:00] VITALS: BP 123/82
[2018-06-29 05:47] VITALS: BP 119/76
[2018-06-29 08:08] VITALS: BP 118/72
[2018-06-29] MEDS: HALOPERIDOL 10 MG TABLET PO SCH ×2 (08:33→16:29)
[2018-06-29] MEDS: NICOTINE 14 MG/24 HOUR PATCH TD SCH (08:33)
[2018-06-29] MEDS: DIVALPROEX SODIUM 500 MG ER TABLET PO SCH ×2 (08:33→16:29)
[2018-06-29] MEDS: MULTIVITAMINS, THERAPEUTIC TABLET PO SCH (08:33)
[2018-06-29] MEDS: BENZTROPINE MESYLATE 1 MG TABLET PO SCH ×2 (08:34→16:29)
[2018-06-29] MEDS: OLANZapine 5 MG RAPDIS TABLET PO PRN ×3 (08:34→20:56)
[2018-06-29 17:48] VITALS: BP 140/70
[2018-06-30 05:04] VITALS: BP 125/72
[2018-06-30 08:06] VITALS: BP 115/78
[2018-06-30] MEDS: OLANZapine 5 MG RAPDIS TABLET PO PRN (08:26)
[2018-06-30] MEDS: DIVALPROEX SODIUM 500 MG ER TABLET PO SCH ×2 (08:26→16:18)
[2018-06-30] MEDS: BENZTROPINE MESYLATE 1 MG TABLET PO SCH ×2 (08:26→16:18)
[2018-06-30] MEDS: HALOPERIDOL 10 MG TABLET PO SCH ×2 (08:26→16:18)
[2018-06-30] MEDS: MULTIVITAMINS, THERAPEUTIC TABLET PO SCH (08:26)
[2018-06-30] MEDS: NICOTINE 14 MG/24 HOUR PATCH TD SCH (08:50)
[2018-06-30 16:00] VITALS: BP 136/87
[2018-07-01 05:21] VITALS: BP 126/78
[2018-07-01 08:08] VITALS: BP 128/74
[2018-07-01] MEDS: NICOTINE 14 MG/24 HOUR PATCH TD SCH (08:57)
[2018-07-01] MEDS: HALOPERIDOL 10 MG TABLET PO SCH ×2 (08:57→16:41)
[2018-07-01] MEDS: OLANZapine 5 MG RAPDIS TABLET PO PRN ×3 (08:57→20:57)
[2018-07-01] MEDS: BENZTROPINE MESYLATE 1 MG TABLET PO SCH ×2 (08:57→16:41)
[2018-07-01] MEDS: MULTIVITAMINS, THERAPEUTIC TABLET PO SCH (08:57)
[2018-07-01] MEDS: DIVALPROEX SODIUM 500 MG ER TABLET PO SCH ×2 (08:57→16:41)
[2018-07-01 16:00] VITALS: BP 116/70
[2018-07-01] MEDS: ZOLPIDEM TARTRATE 10 MG TABLET PO PRN (20:57)
[2018-07-02 08:06] VITALS: BP 117/80
[2018-07-02] MEDS: BENZTROPINE MESYLATE 1 MG TABLET PO SCH ×2 (08:39→16:26)
[2018-07-02] MEDS: HALOPERIDOL 10 MG TABLET PO SCH ×2 (08:39→16:26)
[2018-07-02] MEDS: OLANZapine 5 MG RAPDIS TABLET PO PRN ×2 (08:39→12:50)
[2018-07-02] MEDS: MULTIVITAMINS, THERAPEUTIC TABLET PO SCH (08:39)
[2018-07-02] MEDS: DIVALPROEX SODIUM 500 MG ER TABLET PO SCH ×2 (08:39→16:25)
[2018-07-02] MEDS: NICOTINE 14 MG/24 HOUR PATCH TD SCH (08:40)
[2018-07-02 16:00] VITALS: BP 122/76
[2018-07-02] MEDS: LORazepam 2 MG TABLET PO PRN (16:26)
[2018-07-03 06:34] VITALS: BP 118/68
[2018-07-03] MEDS: BENZTROPINE MESYLATE 1 MG TABLET PO SCH ×2 (08:04→16:35)
[2018-07-03] MEDS: MULTIVITAMINS, THERAPEUTIC TABLET PO SCH (08:05)
[2018-07-03] MEDS: DIVALPROEX SODIUM 500 MG ER TABLET PO SCH ×2 (08:05→16:35)
[2018-07-03] MEDS: HALOPERIDOL 10 MG TABLET PO SCH ×2 (08:05→16:35)
[2018-07-03 08:08] VITALS: BP 116/72
[2018-07-03] MEDS: LORazepam 2 MG TABLET PO PRN ×2 (08:59→16:34)
[2018-07-03] MEDS: NICOTINE 14 MG/24 HOUR PATCH TD SCH (09:00)
[2018-07-03] MEDS: OLANZapine 5 MG RAPDIS TABLET PO PRN (10:57)
[2018-07-03 16:34] VITALS: BP 115/72
[2018-07-04 03:41] VITALS: BP 114/73
[2018-07-04] MEDS: BENZTROPINE MESYLATE 1 MG TABLET PO SCH ×2 (08:20→16:16)
[2018-07-04] MEDS: DIVALPROEX SODIUM 500 MG ER TABLET PO SCH ×2 (08:20→16:16)
[2018-07-04] MEDS: HALOPERIDOL 10 MG TABLET PO SCH ×2 (08:20→16:16)
[2018-07-04] MEDS: LORazepam 2 MG TABLET PO PRN ×2 (08:20→16:16)
[2018-07-04] MEDS: NICOTINE 14 MG/24 HOUR PATCH TD SCH (08:21)
[2018-07-04] MEDS: MULTIVITAMINS, THERAPEUTIC TABLET PO SCH (08:30)
[2018-07-04 08:54] VITALS: BP 114/78
[2018-07-04 16:28] VITALS: BP 138/69
[2018-07-05 05:30] VITALS: BP 106/67
[2018-07-05] MEDS: BENZTROPINE MESYLATE 1 MG TABLET PO SCH ×2 (08:24→16:20)
[2018-07-05] MEDS: HALOPERIDOL 10 MG TABLET PO SCH ×2 (08:24→16:20)
[2018-07-05] MEDS: DIVALPROEX SODIUM 500 MG ER TABLET PO SCH ×2 (08:24→16:19)
[2018-07-05] MEDS: MULTIVITAMINS, THERAPEUTIC TABLET PO SCH (08:24)
[2018-07-05] MEDS: NICOTINE 14 MG/24 HOUR PATCH TD SCH (08:47)
[2018-07-05 09:33] VITALS: BP 124/60
[2018-07-05] MEDS: LORazepam 2 MG TABLET PO PRN ×2 (10:36→16:20)
[2018-07-05] MEDS: OLANZapine 5 MG RAPDIS TABLET PO PRN ×2 (11:29→16:20)
[2018-07-05 16:09] VITALS: BP 134/74
[2018-07-05] MEDS: ZOLPIDEM TARTRATE 10 MG TABLET PO PRN (20:49)
[2018-07-06 06:36] VITALS: BP 115/68
[2018-07-06 08:06] VITALS: BP 120/76
[2018-07-06] MEDS: BENZTROPINE MESYLATE 1 MG TABLET PO SCH ×2 (08:23→16:13)
[2018-07-06] MEDS: DIVALPROEX SODIUM 500 MG ER TABLET PO SCH ×2 (08:23→16:13)
[2018-07-06] MEDS: HALOPERIDOL 10 MG TABLET PO SCH ×2 (08:23→16:13)
[2018-07-06] MEDS: MULTIVITAMINS, THERAPEUTIC TABLET PO SCH (08:24)
[2018-07-06] MEDS: NICOTINE 14 MG/24 HOUR PATCH TD SCH (08:35)
[2018-07-06] MEDS: OLANZapine 5 MG RAPDIS TABLET PO PRN (11:53)
[2018-07-06 16:09] VITALS: BP 109/67
[2018-07-06] MEDS: LORazepam 2 MG TABLET PO PRN (16:13)
[2018-07-07 05:11] VITALS: BP 127/78
[2018-07-07] MEDS: OLANZapine 5 MG RAPDIS TABLET PO PRN (08:41)
[2018-07-07] MEDS: DIVALPROEX SODIUM 500 MG ER TABLET PO SCH ×2 (08:41→16:15)
[2018-07-07] MEDS: HALOPERIDOL 10 MG TABLET PO SCH ×2 (08:41→16:15)
[2018-07-07] MEDS: LORazepam 2 MG TABLET PO PRN ×2 (08:41→16:15)
[2018-07-07] MEDS: MULTIVITAMINS, THERAPEUTIC TABLET PO SCH (08:41)
[2018-07-07] MEDS: BENZTROPINE MESYLATE 1 MG TABLET PO SCH ×2 (08:41→16:15)
[2018-07-07] MEDS: NICOTINE 14 MG/24 HOUR PATCH TD SCH (08:42)
[2018-07-07 09:14] VITALS: BP 121/76
[2018-07-07 16:00] VITALS: BP 132/74
[2018-07-08 06:37] VITALS: BP 100/76
[2018-07-08 08:09] VITALS: BP 126/80
[2018-07-08] MEDS: DIVALPROEX SODIUM 500 MG ER TABLET PO SCH ×2 (08:26→16:27)
[2018-07-08] MEDS: BENZTROPINE MESYLATE 1 MG TABLET PO SCH ×2 (08:26→16:27)
[2018-07-08] MEDS: MULTIVITAMINS, THERAPEUTIC TABLET PO SCH (08:26)
[2018-07-08] MEDS: HALOPERIDOL 10 MG TABLET PO SCH ×2 (08:26→16:27)
[2018-07-08] MEDS: NICOTINE 14 MG/24 HOUR PATCH TD SCH (08:34)
[2018-07-08] MEDS: OLANZapine 5 MG RAPDIS TABLET PO PRN (10:32)
[2018-07-08] MEDS: LORazepam 2 MG TABLET PO PRN ×2 (10:32→16:27)
[2018-07-08 16:00] VITALS: BP 107/68
[2018-07-09 02:03] VITALS: BP 132/79
[2018-07-09 08:08] VITALS: BP 122/78
[2018-07-09] MEDS: BENZTROPINE MESYLATE 1 MG TABLET PO SCH ×2 (09:27→16:51)
[2018-07-09] MEDS: DIVALPROEX SODIUM 500 MG ER TABLET PO SCH ×2 (09:28→16:51)
[2018-07-09] MEDS: NICOTINE 14 MG/24 HOUR PATCH TD SCH (09:28)
[2018-07-09] MEDS: OLANZapine 5 MG RAPDIS TABLET PO PRN (09:28)
[2018-07-09] MEDS: MULTIVITAMINS, THERAPEUTIC TABLET PO SCH (09:28)
[2018-07-09] MEDS: HALOPERIDOL 10 MG TABLET PO SCH ×2 (09:28→16:51)
[2018-07-09] MEDS: LORazepam 2 MG TABLET PO PRN ×2 (09:28→16:51)
[2018-07-09 17:01] VITALS: BP 140/84
[2018-07-10 06:08] VITALS: BP 133/78
[2018-07-10 08:20] VITALS: BP 104/58
[2018-07-10] MEDS: MULTIVITAMINS, THERAPEUTIC TABLET PO SCH (08:44)
[2018-07-10] MEDS: HALOPERIDOL 10 MG TABLET PO SCH ×2 (08:44→16:57)
[2018-07-10] MEDS: BENZTROPINE MESYLATE 1 MG TABLET PO SCH ×2 (08:44→16:57)
[2018-07-10] MEDS: DIVALPROEX SODIUM 500 MG ER TABLET PO SCH ×2 (08:44→16:57)
[2018-07-10] MEDS: LORazepam 2 MG TABLET PO PRN ×2 (08:45→16:57)
[2018-07-10] MEDS: NICOTINE 14 MG/24 HOUR PATCH TD SCH (08:45)
[2018-07-10 16:07] VITALS: BP 128/86
[2018-07-10] MEDS: OLANZapine 5 MG RAPDIS TABLET PO PRN (16:57)
[2018-07-11 02:59] VITALS: BP 119/78
[2018-07-11 08:00] VITALS: BP 112/67
[2018-07-11] MEDS: HALOPERIDOL 10 MG TABLET PO SCH ×2 (08:22→17:08)
[2018-07-11] MEDS: NICOTINE 14 MG/24 HOUR PATCH TD SCH (08:22)
[2018-07-11] MEDS: BENZTROPINE MESYLATE 1 MG TABLET PO SCH ×2 (08:22→17:09)
[2018-07-11] MEDS: DIVALPROEX SODIUM 500 MG ER TABLET PO SCH ×2 (08:22→17:08)
[2018-07-11] MEDS: LORazepam 2 MG TABLET PO PRN ×2 (08:23→17:09)
[2018-07-11] MEDS: MULTIVITAMINS, THERAPEUTIC TABLET PO SCH (08:23)
[2018-07-11 16:17] VITALS: BP 116/72
[2018-07-11] MEDS: OLANZapine 5 MG RAPDIS TABLET PO PRN (19:03)
[2018-07-12 01:11] VITALS: BP 118/76
[2018-07-12 07:41] LABS: CHOL/HDL RATIO 2.6 (4.2-7.3)
[2018-07-12 08:15] VITALS: BP 110/69
[2018-07-12] MEDS: DIVALPROEX SODIUM 500 MG ER TABLET PO SCH ×2 (09:10→16:11)
[2018-07-12] MEDS: HALOPERIDOL 10 MG TABLET PO SCH ×2 (09:10→16:11)
[2018-07-12] MEDS: BENZTROPINE MESYLATE 1 MG TABLET PO SCH ×2 (09:10→16:11)
[2018-07-12] MEDS: NICOTINE 14 MG/24 HOUR PATCH TD SCH (09:11)
[2018-07-12] MEDS: MULTIVITAMINS, THERAPEUTIC TABLET PO SCH (09:16)
[2018-07-12] MEDS: OLANZapine 5 MG RAPDIS TABLET PO PRN (16:11)
[2018-07-12 16:32] VITALS: BP 131/73
[2018-07-12] MEDS: LORazepam 2 MG TABLET PO PRN (17:08)
[2018-07-13 00:42] VITALS: BP 110/79
[2018-07-13 08:00] VITALS: BP 109/65
[2018-07-13] MEDS: HALOPERIDOL 10 MG TABLET PO SCH ×2 (08:59→16:07)
[2018-07-13] MEDS: MULTIVITAMINS, THERAPEUTIC TABLET PO SCH (08:59)
[2018-07-13] MEDS: BENZTROPINE MESYLATE 1 MG TABLET PO SCH ×2 (08:59→16:06)
[2018-07-13] MEDS: DIVALPROEX SODIUM 500 MG ER TABLET PO SCH ×2 (08:59→16:07)
[2018-07-13] MEDS: NICOTINE 14 MG/24 HOUR PATCH TD SCH (09:00)
[2018-07-13] MEDS: LORazepam 2 MG TABLET PO PRN ×2 (11:42→16:07)
[2018-07-13 16:30] VITALS: BP 125/66
[2018-07-14 01:08] VITALS: BP 125/82
[2018-07-14 08:22] VITALS: BP 128/67
[2018-07-14] MEDS: LORazepam 2 MG TABLET PO PRN ×2 (08:29→17:16)
[2018-07-14] MEDS: HALOPERIDOL 10 MG TABLET PO SCH ×2 (08:29→17:16)
[2018-07-14] MEDS: MULTIVITAMINS, THERAPEUTIC TABLET PO SCH (08:29)
[2018-07-14] MEDS: DIVALPROEX SODIUM 500 MG ER TABLET PO SCH ×2 (08:30→17:16)
[2018-07-14] MEDS: BENZTROPINE MESYLATE 1 MG TABLET PO SCH ×2 (08:30→17:16)
[2018-07-14] MEDS: OLANZapine 5 MG RAPDIS TABLET PO PRN ×2 (08:30→17:16)
[2018-07-14] MEDS: NICOTINE 14 MG/24 HOUR PATCH TD SCH (09:00)
[2018-07-14 16:00] VITALS: BP 115/68
[2018-07-15 00:45] VITALS: BP 127/78
[2018-07-15 08:09] VITALS: BP 102/60
[2018-07-15] MEDS: MULTIVITAMINS, THERAPEUTIC TABLET PO SCH (09:45)
[2018-07-15] MEDS: HALOPERIDOL 10 MG TABLET PO SCH ×2 (09:45→16:41)
[2018-07-15] MEDS: BENZTROPINE MESYLATE 1 MG TABLET PO SCH ×2 (09:45→16:41)
[2018-07-15] MEDS: DIVALPROEX SODIUM 500 MG ER TABLET PO SCH ×2 (09:45→16:41)
[2018-07-15] MEDS: NICOTINE 14 MG/24 HOUR PATCH TD SCH (09:46)
[2018-07-15 16:00] VITALS: BP 120/67
[2018-07-15] MEDS: LORazepam 2 MG TABLET PO PRN (16:41)
[2018-07-15] MEDS: OLANZapine 5 MG RAPDIS TABLET PO PRN (16:41)
[2018-07-16 01:30] VITALS: BP 122/71
[2018-07-16 08:17] VITALS: BP 127/80
[2018-07-16] MEDS: BENZTROPINE MESYLATE 1 MG TABLET PO SCH ×2 (08:27→16:30)
[2018-07-16] MEDS: DIVALPROEX SODIUM 500 MG ER TABLET PO SCH ×2 (08:27→16:30)
[2018-07-16] MEDS: MULTIVITAMINS, THERAPEUTIC TABLET PO SCH (08:27)
[2018-07-16] MEDS: HALOPERIDOL 10 MG TABLET PO SCH ×2 (08:28→16:30)
[2018-07-16] MEDS: NICOTINE 14 MG/24 HOUR PATCH TD SCH (08:28)
[2018-07-16] MEDS: LORazepam 2 MG TABLET PO PRN ×2 (13:38→17:40)
[2018-07-16 16:00] VITALS: BP 126/66
[2018-07-17 01:39] VITALS: BP 112/82
[2018-07-17 08:40] VITALS: BP 122/78
[2018-07-17] MEDS: BENZTROPINE MESYLATE 1 MG TABLET PO SCH ×2 (09:46→16:44)
[2018-07-17] MEDS: DIVALPROEX SODIUM 500 MG ER TABLET PO SCH ×2 (09:46→16:44)
[2018-07-17] MEDS: MULTIVITAMINS, THERAPEUTIC TABLET PO SCH (09:46)
[2018-07-17] MEDS: LORazepam 2 MG TABLET PO PRN ×2 (09:46→16:44)
[2018-07-17] MEDS: HALOPERIDOL 10 MG TABLET PO SCH ×2 (09:46→16:44)
[2018-07-17] MEDS: NICOTINE 14 MG/24 HOUR PATCH TD SCH (09:47)
[2018-07-17 16:00] VITALS: BP 117/65
[2018-07-18 05:38] VITALS: BP 117/63
[2018-07-18 08:07] VITALS: BP 118/78
[2018-07-18] MEDS: LORazepam 2 MG TABLET PO PRN ×2 (08:12→14:11)
[2018-07-18] MEDS: NICOTINE 14 MG/24 HOUR PATCH TD SCH (08:12)
[2018-07-18] MEDS: BENZTROPINE MESYLATE 1 MG TABLET PO SCH ×2 (08:13→16:05)
[2018-07-18] MEDS: HALOPERIDOL 10 MG TABLET PO SCH ×2 (08:13→16:05)
[2018-07-18] MEDS: DIVALPROEX SODIUM 500 MG ER TABLET PO SCH ×2 (08:13→16:05)
[2018-07-18] MEDS: MULTIVITAMINS, THERAPEUTIC TABLET PO SCH (08:14)
[2018-07-18] MEDS ORDERED: DIVA500T52 PO (12:23)
[2018-07-18] MEDS: OLANZapine 5 MG RAPDIS TABLET PO PRN (14:11)
[2018-07-18 16:30] VITALS: BP 133/83
[2018-07-19 05:42] VITALS: BP 126/68
[2018-07-19 08:15] VITALS: BP 108/61
[2018-07-19] MEDS: HALOPERIDOL 10 MG TABLET PO SCH ×2 (08:36→16:10)
[2018-07-19] MEDS: DIVALPROEX SODIUM 500 MG ER TABLET PO SCH ×2 (08:36→16:10)
[2018-07-19] MEDS: MULTIVITAMINS, THERAPEUTIC TABLET PO SCH (08:36)
[2018-07-19] MEDS: BENZTROPINE MESYLATE 1 MG TABLET PO SCH ×2 (08:36→16:10)
[2018-07-19] MEDS: NICOTINE 14 MG/24 HOUR PATCH TD SCH (09:00)
[2018-07-19] MEDS: OLANZapine 5 MG RAPDIS TABLET PO PRN (09:51)
[2018-07-19] MEDS: LORazepam 2 MG TABLET PO PRN ×2 (09:51→18:07)
[2018-07-19 16:18] VITALS: BP 116/68
[2018-07-20 04:55] VITALS: BP 119/74
[2018-07-20 08:00] VITALS: BP 109/68
[2018-07-20] MEDS: BENZTROPINE MESYLATE 1 MG TABLET PO SCH ×2 (08:35→17:02)
[2018-07-20] MEDS: HALOPERIDOL 10 MG TABLET PO SCH ×2 (08:35→17:02)
[2018-07-20] MEDS: DIVALPROEX SODIUM 500 MG ER TABLET PO SCH ×2 (08:35→17:02)
[2018-07-20] MEDS: MULTIVITAMINS, THERAPEUTIC TABLET PO SCH (08:35)
[2018-07-20] MEDS: NICOTINE 14 MG/24 HOUR PATCH TD SCH (09:02)
[2018-07-20] MEDS: LORazepam 2 MG TABLET PO PRN ×2 (09:21→17:02)
[2018-07-20] MEDS: OLANZapine 5 MG RAPDIS TABLET PO PRN ×2 (09:21→17:02)
[2018-07-20 16:03] VITALS: BP 116/68
[2018-07-21 06:42] VITALS: BP 114/67
[2018-07-21 08:10] VITALS: BP 123/80
[2018-07-21] MEDS: MULTIVITAMINS, THERAPEUTIC TABLET PO SCH (09:05)
[2018-07-21] MEDS: DIVALPROEX SODIUM 500 MG ER TABLET PO SCH ×2 (09:05→16:18)
[2018-07-21] MEDS: LORazepam 2 MG TABLET PO PRN ×2 (09:05→16:18)
[2018-07-21] MEDS: BENZTROPINE MESYLATE 1 MG TABLET PO SCH ×2 (09:05→16:18)
[2018-07-21] MEDS: HALOPERIDOL 10 MG TABLET PO SCH ×2 (09:05→16:18)
[2018-07-21] MEDS: NICOTINE 14 MG/24 HOUR PATCH TD SCH (09:06)
[2018-07-21 16:00] VITALS: BP 127/88
[2018-07-22 02:01] VITALS: BP 107/67
[2018-07-22 08:25] VITALS: BP 116/60
[2018-07-22] MEDS: DIVALPROEX SODIUM 500 MG ER TABLET PO SCH ×2 (08:42→16:15)
[2018-07-22] MEDS: BENZTROPINE MESYLATE 1 MG TABLET PO SCH ×2 (08:42→16:15)
[2018-07-22] MEDS: MULTIVITAMINS, THERAPEUTIC TABLET PO SCH (08:42)
[2018-07-22] MEDS: HALOPERIDOL 10 MG TABLET PO SCH ×2 (08:43→16:15)
[2018-07-22] MEDS: LORazepam 2 MG TABLET PO PRN ×2 (08:43→16:15)
[2018-07-22] MEDS: NICOTINE 14 MG/24 HOUR PATCH TD SCH (08:43)
[2018-07-22 16:29] VITALS: BP 136/78
[2018-07-23 05:32] VITALS: BP 123/97
[2018-07-23 08:14] VITALS: BP 118/82
[2018-07-23] MEDS: DIVALPROEX SODIUM 500 MG ER TABLET PO SCH ×2 (09:23→16:47)
[2018-07-23] MEDS: HALOPERIDOL 10 MG TABLET PO SCH ×2 (09:23→16:47)
[2018-07-23] MEDS: MULTIVITAMINS, THERAPEUTIC TABLET PO SCH (09:24)
[2018-07-23] MEDS: BENZTROPINE MESYLATE 1 MG TABLET PO SCH ×2 (09:24→16:47)
[2018-07-23] MEDS: LORazepam 2 MG TABLET PO PRN ×2 (09:24→16:47)
[2018-07-23] MEDS: NICOTINE 14 MG/24 HOUR PATCH TD SCH (09:24)
[2018-07-23 16:33] VITALS: BP 126/70
[2018-07-24 06:24] VITALS: BP 105/60
[2018-07-24 08:11] VITALS: BP 117/78
[2018-07-24] MEDS: NICOTINE 14 MG/24 HOUR PATCH TD SCH (09:15)
[2018-07-24] MEDS: HALOPERIDOL 10 MG TABLET PO SCH ×2 (09:16→16:32)
[2018-07-24] MEDS: BENZTROPINE MESYLATE 1 MG TABLET PO SCH ×2 (09:16→16:32)
[2018-07-24] MEDS: DIVALPROEX SODIUM 500 MG ER TABLET PO SCH ×2 (09:16→16:32)
[2018-07-24] MEDS: MULTIVITAMINS, THERAPEUTIC TABLET PO SCH (09:16)
[2018-07-24] MEDS: LORazepam 2 MG TABLET PO PRN ×2 (09:16→16:32)
[2018-07-24] MEDS: OLANZapine 5 MG RAPDIS TABLET PO PRN (09:17)
[2018-07-24] MEDS: HALOPERIDOL DECANOATE 100 MG/ML VIAL IM SCH (10:05)
[2018-07-24 16:00] VITALS: BP 110/73
[2018-07-25 00:15] VITALS: BP 129/69
[2018-07-25 08:14] VITALS: BP 120/68
[2018-07-25] MEDS: NICOTINE 14 MG/24 HOUR PATCH TD SCH (09:00)
[2018-07-25] MEDS: HALOPERIDOL 10 MG TABLET PO SCH ×2 (11:15→16:59)
[2018-07-25] MEDS: MULTIVITAMINS, THERAPEUTIC TABLET PO SCH (11:15)
[2018-07-25] MEDS: DIVALPROEX SODIUM 500 MG ER TABLET PO SCH ×2 (11:16→17:00)
[2018-07-25] MEDS: BENZTROPINE MESYLATE 1 MG TABLET PO SCH ×2 (11:16→17:00)
[2018-07-25 16:00] VITALS: BP 136/88
[2018-07-25] MEDS: LORazepam 2 MG TABLET PO PRN (17:00)
[2018-07-25] MEDS: OLANZapine 5 MG RAPDIS TABLET PO PRN (17:00)
[2018-07-26 00:50] VITALS: BP 134/89
[2018-07-26 08:10] VITALS: BP 118/80
[2018-07-26] MEDS: DIVALPROEX SODIUM 500 MG ER TABLET PO SCH ×2 (08:18→17:01)
[2018-07-26] MEDS: HALOPERIDOL 10 MG TABLET PO SCH ×2 (08:18→17:02)
[2018-07-26] MEDS: BENZTROPINE MESYLATE 1 MG TABLET PO SCH ×2 (08:18→17:02)
[2018-07-26] MEDS: MULTIVITAMINS, THERAPEUTIC TABLET PO SCH (08:18)
[2018-07-26] MEDS: NICOTINE 14 MG/24 HOUR PATCH TD SCH (09:00)
[2018-07-26] MEDS: OLANZapine 5 MG RAPDIS TABLET PO PRN (10:18)
[2018-07-26] MEDS: LORazepam 2 MG TABLET PO PRN ×2 (10:18→17:02)
[2018-07-26 16:00] VITALS: BP 111/67
[2018-07-27 05:47] VITALS: BP 115/68
[2018-07-27 08:15] VITALS: BP 126/82
[2018-07-27] MEDS: BENZTROPINE MESYLATE 1 MG TABLET PO SCH ×2 (08:18→16:27)
[2018-07-27] MEDS: MULTIVITAMINS, THERAPEUTIC TABLET PO SCH (08:18)
[2018-07-27] MEDS: HALOPERIDOL 10 MG TABLET PO SCH ×2 (08:18→16:27)
[2018-07-27] MEDS: LORazepam 2 MG TABLET PO PRN ×2 (08:18→16:27)
[2018-07-27] MEDS: DIVALPROEX SODIUM 500 MG ER TABLET PO SCH ×2 (08:18→16:27)
[2018-07-27] MEDS: NICOTINE 14 MG/24 HOUR PATCH TD SCH (08:18)
[2018-07-27 16:21] VITALS: BP 121/76
[2018-07-27] MEDS: OLANZapine 5 MG RAPDIS TABLET PO PRN (16:27)
[2018-07-28 02:23] VITALS: BP 113/69
[2018-07-28 08:00] VITALS: BP 131/82
[2018-07-28] MEDS: BENZTROPINE MESYLATE 1 MG TABLET PO SCH ×2 (08:50→16:54)
[2018-07-28] MEDS: DIVALPROEX SODIUM 500 MG ER TABLET PO SCH ×2 (08:50→16:53)
[2018-07-28] MEDS: NICOTINE 14 MG/24 HOUR PATCH TD SCH (08:50)
[2018-07-28] MEDS: MULTIVITAMINS, THERAPEUTIC TABLET PO SCH (08:51)
[2018-07-28] MEDS: HALOPERIDOL 10 MG TABLET PO SCH ×2 (08:51→16:53)
[2018-07-28] MEDS: LORazepam 2 MG TABLET PO PRN ×3 (08:51→17:08)
[2018-07-28] MEDS: OLANZapine 5 MG RAPDIS TABLET PO PRN ×2 (08:51→13:02)
[2018-07-28 16:00] VITALS: BP 114/85
[2018-07-29 01:14] VITALS: BP 122/80
[2018-07-29 08:14] VITALS: BP 102/68
[2018-07-29] MEDS: HALOPERIDOL 10 MG TABLET PO SCH ×2 (08:48→16:18)
[2018-07-29] MEDS: OLANZapine 5 MG RAPDIS TABLET PO PRN (08:48)
[2018-07-29] MEDS: NICOTINE 14 MG/24 HOUR PATCH TD SCH (08:48)
[2018-07-29] MEDS: MULTIVITAMINS, THERAPEUTIC TABLET PO SCH (08:48)
[2018-07-29] MEDS: LORazepam 2 MG TABLET PO PRN ×2 (08:48→16:19)
[2018-07-29] MEDS: BENZTROPINE MESYLATE 1 MG TABLET PO SCH ×2 (08:48→16:18)
[2018-07-29] MEDS: DIVALPROEX SODIUM 500 MG ER TABLET PO SCH ×2 (08:48→16:18)
[2018-07-29 16:03] VITALS: BP 130/75
[2018-07-30 06:23] VITALS: BP 110/65
[2018-07-30 08:14] VITALS: BP 123/78
[2018-07-30] MEDS: DIVALPROEX SODIUM 500 MG ER TABLET PO SCH ×2 (08:24→16:30)
[2018-07-30] MEDS: OLANZapine 5 MG RAPDIS TABLET PO PRN (08:24)
[2018-07-30] MEDS: BENZTROPINE MESYLATE 1 MG TABLET PO SCH ×2 (08:24→16:30)
[2018-07-30] MEDS: LORazepam 2 MG TABLET PO PRN ×2 (08:24→16:30)
[2018-07-30] MEDS: HALOPERIDOL 10 MG TABLET PO SCH ×2 (08:24→16:30)
[2018-07-30] MEDS: MULTIVITAMINS, THERAPEUTIC TABLET PO SCH (08:24)
[2018-07-30] MEDS: NICOTINE 14 MG/24 HOUR PATCH TD SCH (08:25)
[2018-07-30 16:33] VITALS: BP 132/67
[2018-07-31 02:05] VITALS: BP 122/73
[2018-07-31 08:15] VITALS: BP 120/68
[2018-07-31] MEDS: BENZTROPINE MESYLATE 1 MG TABLET PO SCH ×2 (08:25→16:50)
[2018-07-31] MEDS: DIVALPROEX SODIUM 500 MG ER TABLET PO SCH ×2 (08:25→16:49)
[2018-07-31] MEDS: MULTIVITAMINS, THERAPEUTIC TABLET PO SCH (08:25)
[2018-07-31] MEDS: HALOPERIDOL 10 MG TABLET PO SCH ×2 (08:25→16:49)
[2018-07-31] MEDS: NICOTINE 14 MG/24 HOUR PATCH TD SCH (09:00)
[2018-07-31] MEDS: LORazepam 2 MG TABLET PO PRN ×2 (10:14→16:49)
[2018-07-31] MEDS: OLANZapine 5 MG RAPDIS TABLET PO PRN (11:46)
[2018-07-31 16:17] VITALS: BP 120/78
[2018-08-01 02:54] VITALS: BP 122/82
[2018-08-01 08:15] VITALS: BP 118/78
[2018-08-01] MEDS: DIVALPROEX SODIUM 500 MG ER TABLET PO SCH ×2 (08:36→16:49)
[2018-08-01] MEDS: BENZTROPINE MESYLATE 1 MG TABLET PO SCH ×2 (08:36→16:49)
[2018-08-01] MEDS: OLANZapine 5 MG RAPDIS TABLET PO PRN (08:36)
[2018-08-01] MEDS: LORazepam 2 MG TABLET PO PRN ×2 (08:36→16:50)
[2018-08-01] MEDS: HALOPERIDOL 10 MG TABLET PO SCH ×2 (08:36→16:50)
[2018-08-01] MEDS: NICOTINE 14 MG/24 HOUR PATCH TD SCH (08:37)
[2018-08-01] MEDS: MULTIVITAMINS, THERAPEUTIC TABLET PO SCH (08:37)
[2018-08-01 16:00] VITALS: BP 125/70
[2018-08-02 04:00] VITALS: BP 122/77
[2018-08-02 08:27] VITALS: BP 111/58
[2018-08-02] MEDS: DIVALPROEX SODIUM 500 MG ER TABLET PO SCH ×2 (08:58→17:05)
[2018-08-02] MEDS: MULTIVITAMINS, THERAPEUTIC TABLET PO SCH (08:59)
[2018-08-02] MEDS: BENZTROPINE MESYLATE 1 MG TABLET PO SCH ×2 (08:59→17:05)
[2018-08-02] MEDS: LORazepam 2 MG TABLET PO PRN ×2 (08:59→17:05)
[2018-08-02] MEDS: OLANZapine 5 MG RAPDIS TABLET PO PRN ×2 (08:59→17:05)
[2018-08-02] MEDS: HALOPERIDOL 10 MG TABLET PO SCH ×2 (08:59→17:05)
[2018-08-02] MEDS: NICOTINE 14 MG/24 HOUR PATCH TD SCH (08:59)
[2018-08-02 16:13] VITALS: BP 110/86
[2018-08-02] MEDS: NYSTATIN 30 GM CREAM TP SCH (17:04)
[2018-08-03 06:25] VITALS: BP 115/78
[2018-08-03 08:16] VITALS: BP 116/72
[2018-08-03] MEDS: MULTIVITAMINS, THERAPEUTIC TABLET PO SCH (09:03)
[2018-08-03] MEDS: BENZTROPINE MESYLATE 1 MG TABLET PO SCH ×2 (09:03→17:04)
[2018-08-03] MEDS: NICOTINE 14 MG/24 HOUR PATCH TD SCH (09:03)
[2018-08-03] MEDS: HALOPERIDOL 10 MG TABLET PO SCH ×2 (09:03→17:05)
[2018-08-03] MEDS: NYSTATIN 30 GM CREAM TP SCH ×2 (09:03→17:05)
[2018-08-03] MEDS: DIVALPROEX SODIUM 500 MG ER TABLET PO SCH ×2 (09:03→17:05)
[2018-08-03] MEDS: LORazepam 2 MG TABLET PO PRN (09:03)
[2018-08-03] MEDS: OLANZapine 5 MG RAPDIS TABLET PO PRN (09:03)
[2018-08-03 17:04] VITALS: BP 131/88
[2018-08-04 02:32] VITALS: BP 118/78
[2018-08-04 08:12] VITALS: BP 124/78
[2018-08-04] MEDS: BENZTROPINE MESYLATE 1 MG TABLET PO SCH ×2 (08:48→16:40)
[2018-08-04] MEDS: DIVALPROEX SODIUM 500 MG ER TABLET PO SCH ×2 (08:48→16:40)
[2018-08-04] MEDS: LORazepam 2 MG TABLET PO PRN ×2 (08:48→16:40)
[2018-08-04] MEDS: MULTIVITAMINS, THERAPEUTIC TABLET PO SCH (08:48)
[2018-08-04] MEDS: NICOTINE 14 MG/24 HOUR PATCH TD SCH (08:48)
[2018-08-04] MEDS: HALOPERIDOL 10 MG TABLET PO SCH ×2 (08:48→16:40)
[2018-08-04] MEDS: NYSTATIN 30 GM CREAM TP SCH ×2 (08:49→16:41)
[2018-08-04 16:00] VITALS: BP 110/68
[2018-08-05 06:41] VITALS: BP 109/71
[2018-08-05] MEDS: LORazepam 2 MG TABLET PO PRN ×2 (09:59→16:22)
[2018-08-05] MEDS: HALOPERIDOL 10 MG TABLET PO SCH ×2 (09:59→16:22)
[2018-08-05] MEDS: BENZTROPINE MESYLATE 1 MG TABLET PO SCH ×2 (09:59→16:22)
[2018-08-05] MEDS: DIVALPROEX SODIUM 500 MG ER TABLET PO SCH ×2 (09:59→16:22)
[2018-08-05] MEDS: OLANZapine 5 MG RAPDIS TABLET PO PRN (09:59)
[2018-08-05] MEDS: MULTIVITAMINS, THERAPEUTIC TABLET PO SCH (09:59)
[2018-08-05] MEDS: NYSTATIN 30 GM CREAM TP SCH ×2 (10:00→16:22)
[2018-08-05] MEDS: NICOTINE 14 MG/24 HOUR PATCH TD SCH (10:00)
[2018-08-05 10:39] VITALS: BP 102/57
[2018-08-05 16:00] VITALS: BP 130/86
[2018-08-06 07:05] VITALS: BP 124/67
[2018-08-06 08:24] VITALS: BP 120/70
[2018-08-06] MEDS: LORazepam 2 MG TABLET PO PRN ×2 (09:02→16:35)
[2018-08-06] MEDS: OLANZapine 5 MG RAPDIS TABLET PO PRN (09:02)
[2018-08-06] MEDS: MULTIVITAMINS, THERAPEUTIC TABLET PO SCH (09:03)
[2018-08-06] MEDS: HALOPERIDOL 10 MG TABLET PO SCH ×2 (09:03→16:36)
[2018-08-06] MEDS: NICOTINE 14 MG/24 HOUR PATCH TD SCH (09:03)
[2018-08-06] MEDS: DIVALPROEX SODIUM 500 MG ER TABLET PO SCH ×2 (09:03→16:35)
[2018-08-06] MEDS: NYSTATIN 30 GM CREAM TP SCH ×2 (09:03→16:36)
[2018-08-06] MEDS: BENZTROPINE MESYLATE 1 MG TABLET PO SCH ×2 (09:03→16:35)
[2018-08-06 16:00] VITALS: BP 126/74
[2018-08-07 03:15] VITALS: BP 125/71
[2018-08-07 08:22] VITALS: BP 118/82
[2018-08-07] MEDS: BENZTROPINE MESYLATE 1 MG TABLET PO SCH ×2 (08:56→16:27)
[2018-08-07] MEDS: HALOPERIDOL 10 MG TABLET PO SCH ×2 (08:56→16:25)
[2018-08-07] MEDS: MULTIVITAMINS, THERAPEUTIC TABLET PO SCH (08:56)
[2018-08-07] MEDS: LORazepam 2 MG TABLET PO PRN ×2 (08:56→16:25)
[2018-08-07] MEDS: DIVALPROEX SODIUM 500 MG ER TABLET PO SCH ×2 (08:58→16:25)
[2018-08-07] MEDS: NICOTINE 14 MG/24 HOUR PATCH TD SCH (09:00)
[2018-08-07] MEDS: NYSTATIN 30 GM CREAM TP SCH (09:02)
[2018-08-07] MEDS ORDERED: HYDROCORTISONE 1% 30 GM OINTMENT TP PRN (14:00)
[2018-08-07] MEDS ORDERED: PERMETHRIN 5% 60 GM CREAM TP ONE (14:00)
[2018-08-07 16:58] VITALS: BP 144/97
[2018-08-08 00:31] VITALS: BP 121/78
[2018-08-08 08:10] VITALS: BP 120/72
[2018-08-08] MEDS: MULTIVITAMINS, THERAPEUTIC TABLET PO SCH (08:13)
[2018-08-08] MEDS: LORazepam 2 MG TABLET PO PRN ×2 (08:13→16:58)
[2018-08-08] MEDS: BENZTROPINE MESYLATE 1 MG TABLET PO SCH ×2 (08:13→16:58)
[2018-08-08] MEDS: DIVALPROEX SODIUM 500 MG ER TABLET PO SCH ×2 (08:13→16:57)
[2018-08-08] MEDS: HALOPERIDOL 10 MG TABLET PO SCH ×2 (08:13→16:58)
[2018-08-08] MEDS: OLANZapine 5 MG RAPDIS TABLET PO PRN (08:13)
[2018-08-08] MEDS: NICOTINE 14 MG/24 HOUR PATCH TD SCH (08:13)
[2018-08-08] MEDS ORDERED: PERMETHRIN 5% 60 GM CREAM TP ONE (12:45)
[2018-08-08 16:25] VITALS: BP 118/74
[2018-08-09 06:49] VITALS: BP 110/75
[2018-08-09 08:18] VITALS: BP 114/70
[2018-08-09] MEDS: MULTIVITAMINS, THERAPEUTIC TABLET PO SCH (08:53)
[2018-08-09] MEDS: NICOTINE 14 MG/24 HOUR PATCH TD SCH (08:53)
[2018-08-09] MEDS: BENZTROPINE MESYLATE 1 MG TABLET PO SCH ×2 (08:53→17:15)
[2018-08-09] MEDS: DIVALPROEX SODIUM 500 MG ER TABLET PO SCH ×2 (08:53→17:15)
[2018-08-09] MEDS: HALOPERIDOL 10 MG TABLET PO SCH ×2 (08:53→17:15)
[2018-08-09 16:30] VITALS: BP 124/82
[2018-08-09] MEDS: LORazepam 2 MG TABLET PO PRN (17:15)
[2018-08-10 03:53] VITALS: BP 132/77
[2018-08-10 08:13] VITALS: BP 126/78
[2018-08-10] MEDS: MULTIVITAMINS, THERAPEUTIC TABLET PO SCH (09:34)
[2018-08-10] MEDS: DIVALPROEX SODIUM 500 MG ER TABLET PO SCH ×2 (09:34→16:11)
[2018-08-10] MEDS: BENZTROPINE MESYLATE 1 MG TABLET PO SCH ×2 (09:34→16:11)
[2018-08-10] MEDS: HALOPERIDOL 10 MG TABLET PO SCH ×2 (09:34→16:11)
[2018-08-10] MEDS: OLANZapine 5 MG RAPDIS TABLET PO PRN ×2 (09:35→16:11)
[2018-08-10] MEDS: LORazepam 2 MG TABLET PO PRN ×2 (09:35→16:11)
[2018-08-10] MEDS: NICOTINE 14 MG/24 HOUR PATCH TD SCH (09:35)
[2018-08-10 16:11] VITALS: BP 120/80
[2018-08-11 06:55] VITALS: BP 111/77
[2018-08-11 08:08] VITALS: BP 123/82
[2018-08-11] MEDS: DIVALPROEX SODIUM 500 MG ER TABLET PO SCH ×2 (08:33→18:07)
[2018-08-11] MEDS: MULTIVITAMINS, THERAPEUTIC TABLET PO SCH (08:34)
[2018-08-11] MEDS: BENZTROPINE MESYLATE 1 MG TABLET PO SCH ×2 (08:34→16:41)
[2018-08-11] MEDS: NICOTINE 14 MG/24 HOUR PATCH TD SCH (08:34)
[2018-08-11] MEDS: HALOPERIDOL 10 MG TABLET PO SCH ×2 (08:35→16:42)
[2018-08-11 16:11] VITALS: BP 129/78
[2018-08-11] MEDS: LORazepam 2 MG TABLET PO PRN (16:42)
[2018-08-12 04:49] VITALS: BP 126/81
[2018-08-12] MEDS: NICOTINE 14 MG/24 HOUR PATCH TD SCH (09:00)
[2018-08-12] MEDS: DIVALPROEX SODIUM 500 MG ER TABLET PO SCH ×2 (09:55→16:30)
[2018-08-12] MEDS: LORazepam 2 MG TABLET PO PRN (09:55)
[2018-08-12] MEDS: HALOPERIDOL 10 MG TABLET PO SCH ×2 (09:55→16:30)
[2018-08-12] MEDS: MULTIVITAMINS, THERAPEUTIC TABLET PO SCH (09:56)
[2018-08-12] MEDS: BENZTROPINE MESYLATE 1 MG TABLET PO SCH ×2 (09:56→16:30)
[2018-08-12 10:35] VITALS: BP 93/58
[2018-08-12] MEDS: OLANZapine 5 MG RAPDIS TABLET PO PRN (16:30)
[2018-08-12 16:34] VITALS: BP 123/74
[2018-08-13 06:44] VITALS: BP 116/67
[2018-08-13 08:11] VITALS: BP 111/70
[2018-08-13] MEDS: NICOTINE 14 MG/24 HOUR PATCH TD SCH (08:33)
[2018-08-13] MEDS: LORazepam 2 MG TABLET PO PRN ×2 (08:33→17:08)
[2018-08-13] MEDS: MULTIVITAMINS, THERAPEUTIC TABLET PO SCH (08:34)
[2018-08-13] MEDS: DIVALPROEX SODIUM 500 MG ER TABLET PO SCH ×2 (08:34→17:08)
[2018-08-13] MEDS: HALOPERIDOL 10 MG TABLET PO SCH ×2 (08:34→17:08)
[2018-08-13] MEDS: BENZTROPINE MESYLATE 1 MG TABLET PO SCH ×2 (08:34→17:08)
[2018-08-13 16:35] VITALS: BP 139/76
[2018-08-14 04:10] VITALS: BP 145/70
[2018-08-14 08:15] VITALS: BP 138/70
[2018-08-14] MEDS: HALOPERIDOL 10 MG TABLET PO SCH ×2 (08:16→16:54)
[2018-08-14] MEDS: BENZTROPINE MESYLATE 1 MG TABLET PO SCH ×2 (08:16→16:54)
[2018-08-14] MEDS: DIVALPROEX SODIUM 500 MG ER TABLET PO SCH ×2 (08:16→16:54)
[2018-08-14] MEDS: MULTIVITAMINS, THERAPEUTIC TABLET PO SCH (08:16)
[2018-08-14] MEDS: NICOTINE 14 MG/24 HOUR PATCH TD SCH (08:18)
[2018-08-14] MEDS: LORazepam 2 MG TABLET PO PRN ×2 (09:27→16:54)
[2018-08-14] MEDS: OLANZapine 5 MG RAPDIS TABLET PO PRN ×2 (09:27→19:34)
[2018-08-14 16:40] VITALS: BP 115/63
[2018-08-15 06:29] VITALS: BP 118/65
[2018-08-15] MEDS: BENZTROPINE MESYLATE 1 MG TABLET PO SCH ×2 (08:06→16:13)
[2018-08-15] MEDS: HALOPERIDOL 10 MG TABLET PO SCH ×2 (08:06→16:13)
[2018-08-15] MEDS: MULTIVITAMINS, THERAPEUTIC TABLET PO SCH (08:06)
[2018-08-15] MEDS: DIVALPROEX SODIUM 500 MG ER TABLET PO SCH ×2 (08:06→16:13)
[2018-08-15 08:09] VITALS: BP 123/70
[2018-08-15] MEDS: NICOTINE 14 MG/24 HOUR PATCH TD SCH (08:13)
[2018-08-15] MEDS: LORazepam 2 MG TABLET PO PRN (16:13)
[2018-08-15 16:29] VITALS: BP 129/73
[2018-08-16 06:25] VITALS: BP 118/82
[2018-08-16 08:35] VITALS: BP 120/66
[2018-08-16] MEDS: NICOTINE 14 MG/24 HOUR PATCH TD SCH (09:00)
[2018-08-16] MEDS: BENZTROPINE MESYLATE 1 MG TABLET PO SCH ×2 (09:10→16:04)
[2018-08-16] MEDS: DIVALPROEX SODIUM 500 MG ER TABLET PO SCH ×2 (09:10→16:04)
[2018-08-16] MEDS: MULTIVITAMINS, THERAPEUTIC TABLET PO SCH (09:10)
[2018-08-16] MEDS: HALOPERIDOL 10 MG TABLET PO SCH ×2 (09:10→16:04)
[2018-08-16] MEDS: LORazepam 2 MG TABLET PO PRN (16:04)
[2018-08-16 16:25] VITALS: BP 140/83
[2018-08-17 05:13] VITALS: BP 124/76
[2018-08-17 08:16] VITALS: BP 120/72
[2018-08-17] MEDS: BENZTROPINE MESYLATE 1 MG TABLET PO SCH ×2 (08:21→16:30)
[2018-08-17] MEDS: HALOPERIDOL 10 MG TABLET PO SCH ×2 (08:21→16:30)
[2018-08-17] MEDS: DIVALPROEX SODIUM 500 MG ER TABLET PO SCH ×2 (08:21→16:30)
[2018-08-17] MEDS: MULTIVITAMINS, THERAPEUTIC TABLET PO SCH (08:21)
[2018-08-17] MEDS: NICOTINE 14 MG/24 HOUR PATCH TD SCH (09:00)
[2018-08-17] MEDS: LORazepam 2 MG TABLET PO PRN ×2 (14:22→21:08)
[2018-08-17 16:12] VITALS: BP 122/82
[2018-08-17] MEDS: OLANZapine 5 MG RAPDIS TABLET PO PRN (16:30)
[2018-08-18 02:24] VITALS: BP 127/83
[2018-08-18 08:09] VITALS: BP 128/65
[2018-08-18] MEDS: NICOTINE 14 MG/24 HOUR PATCH TD SCH (09:00)
[2018-08-18] MEDS: BENZTROPINE MESYLATE 1 MG TABLET PO SCH ×2 (09:25→17:10)
[2018-08-18] MEDS: MULTIVITAMINS, THERAPEUTIC TABLET PO SCH (09:25)
[2018-08-18] MEDS: HALOPERIDOL 10 MG TABLET PO SCH ×2 (09:25→17:10)
[2018-08-18] MEDS: DIVALPROEX SODIUM 500 MG ER TABLET PO SCH ×2 (09:25→17:10)
[2018-08-18] MEDS: OLANZapine 5 MG RAPDIS TABLET PO PRN (09:26)
[2018-08-18] MEDS: LORazepam 2 MG TABLET PO PRN ×2 (09:26→17:10)
[2018-08-18 16:15] VITALS: BP 120/86
[2018-08-19 06:34] VITALS: BP 115/80
[2018-08-19 08:10] VITALS: BP 118/78
[2018-08-19] MEDS: NICOTINE 14 MG/24 HOUR PATCH TD SCH (08:55)
[2018-08-19] MEDS: HALOPERIDOL 10 MG TABLET PO SCH ×2 (08:56→16:31)
[2018-08-19] MEDS: BENZTROPINE MESYLATE 1 MG TABLET PO SCH ×2 (08:56→16:31)
[2018-08-19] MEDS: DIVALPROEX SODIUM 500 MG ER TABLET PO SCH ×2 (08:56→16:31)
[2018-08-19] MEDS: MULTIVITAMINS, THERAPEUTIC TABLET PO SCH (08:56)
[2018-08-19] MEDS: LORazepam 2 MG TABLET PO PRN ×2 (08:56→16:31)
[2018-08-19] MEDS: OLANZapine 5 MG RAPDIS TABLET PO PRN ×2 (08:56→16:31)
[2018-08-19 16:11] VITALS: BP 118/61
[2018-08-20 04:28] VITALS: BP 112/64
[2018-08-20 08:26] VITALS: BP 137/76
[2018-08-20] MEDS: NICOTINE 14 MG/24 HOUR PATCH TD SCH (09:00)
[2018-08-20] MEDS: HALOPERIDOL 10 MG TABLET PO SCH ×2 (09:46→16:25)
[2018-08-20] MEDS: BENZTROPINE MESYLATE 1 MG TABLET PO SCH ×2 (09:46→16:25)
[2018-08-20] MEDS: DIVALPROEX SODIUM 500 MG ER TABLET PO SCH ×2 (09:46→16:24)
[2018-08-20] MEDS: MULTIVITAMINS, THERAPEUTIC TABLET PO SCH (09:46)
[2018-08-20] MEDS: LORazepam 2 MG TABLET PO PRN ×2 (15:26→19:33)
[2018-08-20 16:10] VITALS: BP 136/84
[2018-08-21 06:05] VITALS: BP 125/80
[2018-08-21] MEDS: MULTIVITAMINS, THERAPEUTIC TABLET PO SCH (08:11)
[2018-08-21] MEDS: DIVALPROEX SODIUM 500 MG ER TABLET PO SCH ×2 (08:11→17:19)
[2018-08-21] MEDS: BENZTROPINE MESYLATE 1 MG TABLET PO SCH ×2 (08:12→17:19)
[2018-08-21] MEDS: HALOPERIDOL 10 MG TABLET PO SCH ×2 (08:12→16:12)
[2018-08-21 08:13] VITALS: BP 128/76
[2018-08-21] MEDS: LORazepam 2 MG TABLET PO PRN ×2 (08:48→16:12)
[2018-08-21] MEDS: NICOTINE 14 MG/24 HOUR PATCH TD SCH (09:00)
[2018-08-21] MEDS: OLANZapine 5 MG RAPDIS TABLET PO PRN ×2 (11:27→16:12)
[2018-08-21 16:35] VITALS: BP 129/83
[2018-08-22 00:29] VITALS: BP 118/79
[2018-08-22 08:16] VITALS: BP 140/78
[2018-08-22] MEDS: BENZTROPINE MESYLATE 1 MG TABLET PO SCH ×2 (08:24→16:26)
[2018-08-22] MEDS: LORazepam 2 MG TABLET PO PRN ×2 (08:24→16:26)
[2018-08-22] MEDS: OLANZapine 5 MG RAPDIS TABLET PO PRN (08:24)
[2018-08-22] MEDS: MULTIVITAMINS, THERAPEUTIC TABLET PO SCH (08:24)
[2018-08-22] MEDS: HALOPERIDOL 10 MG TABLET PO SCH ×2 (08:24→16:26)
[2018-08-22] MEDS: DIVALPROEX SODIUM 500 MG ER TABLET PO SCH ×2 (08:25→16:26)
[2018-08-22] MEDS: NICOTINE 14 MG/24 HOUR PATCH TD SCH (08:25)
[2018-08-22 16:00] VITALS: BP 125/81
[2018-08-23 02:43] VITALS: BP 133/72
[2018-08-23 08:15] VITALS: BP 133/80
[2018-08-23] MEDS: BENZTROPINE MESYLATE 1 MG TABLET PO SCH ×2 (08:45→16:11)
[2018-08-23] MEDS: DIVALPROEX SODIUM 500 MG ER TABLET PO SCH ×2 (08:45→16:11)
[2018-08-23] MEDS: HALOPERIDOL 10 MG TABLET PO SCH ×2 (08:45→16:11)
[2018-08-23] MEDS: MULTIVITAMINS, THERAPEUTIC TABLET PO SCH (08:45)
[2018-08-23] MEDS: NICOTINE 14 MG/24 HOUR PATCH TD SCH (09:00)
[2018-08-23] MEDS: HALOPERIDOL DECANOATE 100 MG/ML VIAL IM SCH (09:24)
[2018-08-23] MEDS: LORazepam 2 MG TABLET PO PRN ×2 (09:53→16:11)
[2018-08-23 16:39] VITALS: BP 110/67
[2018-08-24 05:10] VITALS: BP 112/72
[2018-08-24] MEDS: BENZTROPINE MESYLATE 1 MG TABLET PO SCH ×2 (08:05→16:30)
[2018-08-24] MEDS: DIVALPROEX SODIUM 500 MG ER TABLET PO SCH ×2 (08:05→16:30)
[2018-08-24] MEDS: MULTIVITAMINS, THERAPEUTIC TABLET PO SCH (08:05)
[2018-08-24] MEDS: HALOPERIDOL 10 MG TABLET PO SCH ×2 (08:05→16:30)
[2018-08-24] MEDS: NICOTINE 14 MG/24 HOUR PATCH TD SCH (08:06)
[2018-08-24 08:10] VITALS: BP 130/73
[2018-08-24] MEDS: OLANZapine 5 MG RAPDIS TABLET PO PRN (08:45)
[2018-08-24] MEDS: LORazepam 2 MG TABLET PO PRN ×2 (08:45→16:30)
[2018-08-24 16:30] VITALS: BP 119/79
[2018-08-25 05:34] VITALS: BP 110/75
[2018-08-25 08:16] VITALS: BP 143/77
[2018-08-25] MEDS: HALOPERIDOL 10 MG TABLET PO SCH ×2 (08:29→16:31)
[2018-08-25] MEDS: DIVALPROEX SODIUM 500 MG ER TABLET PO SCH ×2 (08:29→16:31)
[2018-08-25] MEDS: MULTIVITAMINS, THERAPEUTIC TABLET PO SCH (08:30)
[2018-08-25] MEDS: NICOTINE 14 MG/24 HOUR PATCH TD SCH (08:39)
[2018-08-25] MEDS: LORazepam 2 MG TABLET PO PRN ×3 (08:41→17:55)
[2018-08-25] MEDS: BENZTROPINE MESYLATE 1 MG TABLET PO SCH ×2 (09:53→16:31)
[2018-08-25 16:00] VITALS: BP 125/75
[2018-08-26 06:57] VITALS: BP 115/72
[2018-08-26] MEDS: BENZTROPINE MESYLATE 1 MG TABLET PO SCH ×2 (08:05→16:11)
[2018-08-26] MEDS: MULTIVITAMINS, THERAPEUTIC TABLET PO SCH (08:05)
[2018-08-26] MEDS: LORazepam 2 MG TABLET PO PRN ×2 (08:05→17:31)
[2018-08-26] MEDS: HALOPERIDOL 10 MG TABLET PO SCH ×2 (08:05→16:11)
[2018-08-26] MEDS: DIVALPROEX SODIUM 500 MG ER TABLET PO SCH ×2 (08:05→16:11)
[2018-08-26] MEDS: NICOTINE 14 MG/24 HOUR PATCH TD SCH (08:06)
[2018-08-26 08:15] VITALS: BP 138/72
[2018-08-26 16:00] VITALS: BP 137/77
[2018-08-26] MEDS: OLANZapine 5 MG RAPDIS TABLET PO PRN (17:31)
[2018-08-27 01:16] VITALS: BP 122/71
[2018-08-27] MEDS: HALOPERIDOL 10 MG TABLET PO SCH (08:27)
[2018-08-27] MEDS: DIVALPROEX SODIUM 500 MG ER TABLET PO SCH (08:27)
[2018-08-27] MEDS: BENZTROPINE MESYLATE 1 MG TABLET PO SCH (08:27)
[2018-08-27] MEDS: MULTIVITAMINS, THERAPEUTIC TABLET PO SCH (08:28)
[2018-08-27] MEDS: NICOTINE 14 MG/24 HOUR PATCH TD SCH (08:28)
[2018-08-27 09:26] VITALS: BP 128/70
== END 2018-08-27 14:21 | disposition home or self-care (01) | DRG 750 ==
LOC: EMS 13:28 → B3A 16:55
PROVIDERS: ADMIT Psychiatry & Neurology Psychiatry; ATTEND Psychiatry & Neurology Psychiatry
DX: F25.0 Schizoaffective disorder, bipolar type (principal); R45.850 Homicidal ideations; F10.129 Alcohol abuse with intoxication, unspecified; D72.829 Elevated white blood cell count, unspecified; B86 Scabies; F12.90 Cannabis use, unspecified, uncomplicated; F17.200 Nicotine dependence, unspecified, uncomplicated; F15.10 Other stimulant abuse, uncomplicated; G47.00 Insomnia, unspecified; Z91.19 Patient's noncompliance with other medical treatment and regimen; Z23 Encounter for immunization
CPT/HCPCS: 80074; 80307; 82570; 83036; 84443; 86592; 86706; 87081; 90686; 96372; 99291; G0480; J1200; J1630; J1631; J2060

== ENCOUNTER 2018-06-23 10:10 | Emergency (ER) | payer MEDICAID ==
[~2018-06-23] VITALS: Ht 180.3 cm; Wt 93.3 kg
[~2018-06-23 10:10] MED LIST: BENZ1TAB10 PO; DIVA500T52 PO; HALO10 PO; HALO100V4 IM; MULT-1239 PO; NICO-703 TD
[2018-06-23 10:20] VITALS: BP 124/82
[2018-06-23] MEDS ORDERED: ACETAMINOPHEN 325 MG TABLET PO ONE (10:45)
== END 2018-06-23 11:20 | disposition home or self-care (01) ==
LOC: EMS 10:13
DX: S62.306D Unspecified fracture of fifth metacarpal bone, right hand, subsequent encounter for fracture with routine healing (principal); W22.01XD Walked into wall, subsequent encounter
CPT/HCPCS: 99283